=== PATIENT | female | born 1980 | race Caucasian/White ===

== ENCOUNTER 2023-04-01 09:10 | Outpatient (RCR) | payer MEDICARE, MEDICAID, SELFPAY ==
--- NOTE | 2023-04-01 10:10 | OPREHPOC ---
Outpatient Therapy Plan of Care This is a Multidisciplinary Plan of Care that may contain components documented by all disciplines (PT, OT, and ST.) PT Problem 1 PT Problem #1 Knowledge Deficit PT Goal 1 Goal 1. independent and compliant with HEP Target Visit 6 PT Problem 2 PT Problem #2 Pain PT Goal 1 Goal 1. decrease pain at worst to 4/10 or less in the cervical spine. Target Visit 12 PT Problem 3 PT Problem #3 Impaired Range of Motion PT Goal 1 Goal 1. improve cervical active flexion to 40 degrees or better 2. improve cervical active L side bend to 30 degrees or better 3. improve cervical active R rotation to 55 degrees or better Target Visit 12 PT Problem 4 PT Problem #4 Impaired Functional Mobil PT Goal 1 Goal 1. mild or less R UT and sub-occipital tightness 2. mild or less bilateral pec minor tightness 3. improve posture to reduce scapular protraction and anterior tipping bilaterally. 4. patient to report reduced frequency and intensity of headaches 3x weekly or more Target Visit 12
--- NOTE | 2023-04-01 10:10 | PTOPEVAL1 ---
Assessment and note entered by JT File, PT Evaluation Information Assessment Status Evaluation Diagnosis neck pain Onset 03/13/23 Subjective Information patient reports she is coming to therapy due to pain in the neck. she reports she has had pain for more than 10 years. she reports lately, it has gotten to the point it is causing increased headaches and migraines. she reports she has migraines every day. she reports she feels pain in the head to the top of the hear and moves outward towards the R side of her head. she reports she will feel numbness to the R side of the head and R neck. she reports she has not had any cardiac tests. she reports she does not take meds for the migraines, but is supposed to start Botox. she reports she has increased pain/symptoms at times, but cannot pin point the activities that trigger it. 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 she reports she is on disability from post covid syndrome. Reported Pain Level Pain Score 5: Self Report Assessment PT Clinical Summary mrs. rahman is a 42 yo woman who presents to skilled PT services for evaluation and treatment of neck pain. she is complicated by headaches/migraines every day, and her neck pain seems to increase her symptoms. she displays decreased cervical rom, tenderness to palpation of cervical mm's,mm tightness, resting pain, and deficits in posture/ core strength. continued skilled PT is indicated to improve her objective/functional deficits and improve her quality of life/functional activity performance. Plan of Care Interventions Electrical Stimulation,Hot Pack/Cold Pack,Manual Therapy,Mechanical Traction,Neuro Re-education, Patient/Caregiver Educati,Therapeutic Activities, Therapeutic Exercise,Other Other Interventions dry needling PT Services Indicated Yes Treatment Frequency and 3x weekly for 12 visits Duration These treatments will address the objective and functional deficits as defined above. The patient will be advanced safely and appropriately in order for the patient to progress towards his/her prior level of function. Additional exercises will be introduced and as well as a comprehensive home exercise program upon discharge, if needed, ?to ensure carryover of functional gains achieved in the clinic. This treatment plan has been reviewed and agreement upon by the patient.
--- NOTE | 2023-04-15 08:53 | PCPTNOTE ---
Patient cancelled session today. Patient reports she has a migraine.
--- NOTE | 2023-04-24 10:25 | OPREHPOC ---
Outpatient Therapy Plan of Care This is a Multidisciplinary Plan of Care that may contain components documented by all disciplines (PT, OT, and ST.) PT Problem 1 PT Problem #1 Knowledge Deficit PT Goal 1 Goal 1. independent and compliant with HEP Target Visit 6 Progress Met PT Problem 2 PT Problem #2 Pain PT Goal 1 Goal 1. decrease pain at worst to 4/10 or less in the cervical spine. Target Visit 12 Progress Not Met PT Problem 3 PT Problem #3 Impaired Range of Motion PT Goal 1 Goal 1. improve cervical active flexion to 40 degrees or better. met 2. improve cervical active L side bend to 30 degrees or better 3. improve cervical active R rotation to 55 degrees or better Target Visit 12 Progress Partially Met PT Problem 4 PT Problem #4 Impaired Functional Mobil PT Goal 1 Goal 1. mild or less R UT and sub-occipital tightness 2. mild or less bilateral pec minor tightness 3. improve posture to reduce scapular protraction and anterior tipping bilaterally. 4. patient to report reduced frequency and intensity of headaches 3x weekly or more Target Visit 12 Progress Not Met
--- NOTE | 2023-04-24 10:25 | PTOPPROGNS ---
Assessment and note entered by JT File, PT Evaluation Information Assessment Status Progress Diagnosis neck pain Onset 03/13/23 Subjective Information patient reports she has a migraine today. she reports she they typically last a few days. she reports she has noticed improved mobility of the neck with therapy, but continues to have pain in the neck and head. Assessment PT Clinical Summary mrs. rahman presents to skilled PT services for her 10th skilled therapy visit. today, she has a headache and continues to have neck and head pain. she displays improvements in cervical mobility, but still lacks achievement of all goals. she has made progressed towards rom and HEP goals. she was introduced to dry needling today to improve tissue extensibility and decrease pain. continued skilled PT is indicated to work on achievement of remaining goals and improved quality of life. Plan of Care Interventions Electrical Stimulation,Hot Pack/Cold Pack,Manual Therapy,Mechanical Traction,Neuro Re-education, Patient/Caregiver Educati,Therapeutic Activities, Therapeutic Exercise,Other Other Interventions dry needling PT Services Indicated Yes Treatment Frequency and continue skilled PT per initial POC Duration These treatments will address the objective and functional deficits as defined above. The patient will be advanced safely and appropriately in order for the patient to progress towards his/her prior level of function. Additional exercises will be introduced and as well as a comprehensive home exercise program upon discharge, if needed, ?to ensure carryover of functional gains achieved in the clinic. This treatment plan has been reviewed and agreement upon by the patient.
--- NOTE | 2023-04-30 14:42 | OPREHPOC ---
Outpatient Therapy Plan of Care This is a Multidisciplinary Plan of Care that may contain components documented by all disciplines (PT, OT, and ST.) PT Problem 1 PT Problem #1 Knowledge Deficit PT Goal 1 Goal 1. independent and compliant with HEP Target Visit 6 Progress Met PT Problem 2 PT Problem #2 Pain PT Goal 1 Goal 1. decrease pain at worst to 4/10 or less in the cervical spine. Target Visit 12 Progress Not Met PT Problem 3 PT Problem #3 Impaired Range of Motion PT Goal 1 Goal 1. improve cervical active flexion to 40 degrees or better. met 2. improve cervical active L side bend to 30 degrees or better. met 3. improve cervical active R rotation to 55 degrees or better. met Target Visit 12 Progress Met PT Problem 4 PT Problem #4 Impaired Functional Mobil PT Goal 1 Goal 1. mild or less R UT and sub-occipital tightness. met 2. mild or less bilateral pec minor tightness. not met 3. improve posture to reduce scapular protraction and anterior tipping bilaterally. not met 4. patient to report reduced frequency and intensity of headaches 3x weekly or more. not met Target Visit 12 Progress Not Met
--- NOTE | 2023-04-30 14:44 | PTOPDC ---
Assessment and note entered by JT File, PT Evaluation Information Assessment Status Discharge Diagnosis neck pain Onset 03/13/23 Subjective Information patient reports the pain in her neck is almost all taken care of. she reports the L side still has a little discomfort. she reports she continues to have migraines. patient has been compliant with exercises most days, but on back migraine days she is less active. she reports she continues to have several headaches/migraines a week. Reported Pain Level Pain Score 3,3: Self Report Assessment PT Clinical Summary mrs. rahman presents to skilled PT services for her 12th skilled PT visit. she presents with improve cervical rom and UE strength, and decreased cervical spine pain. however, she continues to have headaches and migraines routinely. she has met HEP goal and rom goals of the cervical spine. she will DC skilled PT today to independent HEP. she was instructed to follow up with PT on any return of symptoms in the neck. Plan of Care PT Services Indicated Yes
== END 2023-04-30 15:32 | disposition home or self-care (01) ==
LOC: CHSPT 09:10
DX: M54.2 Cervicalgia (principal)
CPT/HCPCS: 97012; 97014; 97110; 97140; 97161; G0283

== ENCOUNTER 2023-06-13 08:00 | Outpatient (RCR) | payer MEDICARE, MEDICAID, SELFPAY ==
--- NOTE | 2023-06-13 08:57 | OPREHPOC ---
Outpatient Therapy Plan of Care This is a Multidisciplinary Plan of Care that may contain components documented by all disciplines (PT, OT, and ST.) PT Problem 1 PT Problem #1 Knowledge Deficit PT Goal 1 Goal patient to demonstrate independence with HEP Target Visit 4 PT Problem 2 PT Problem #2 Impaired Strength PT Goal 1 Goal patient to demonstrate 5/5 strength of B LE in order to return to stair navigation at PLOF Target Visit 8 PT Problem 3 PT Problem #3 Impaired Functional Mobil PT Goal 1 Goal 1. Patient to report ability to stand to do dishes without loss of balance 2. Patient to ambulate 1600' during 6 min walk test without grabbing for objects to return to grocery shopping 3. Patient to score 24 on Tinetti Balance to decrease fall risk within the home Target Visit 8
--- NOTE | 2023-06-13 08:57 | PTOPEVAL1 ---
Assessment and note entered by Columba Castillo DPT Evaluation Information Assessment Status Evaluation Diagnosis impaired balance, neck pain Subjective Information Patient reports she had COVID in April of 2019 and has had balance issues since. She denies falls recently but reports she does lose her balance and is able to catch herself. She reports her last fall was about a month ago. She reports any time she is standing she feels unsteady. She reports difficulty with standing for prolonged periods of time to complete house hold tasks due to impaired balance. She reports that she also has difficulty with stair navigation and feels she needs a railing. patient denies neck pain at time of evaluation Reported Pain Level Pain Score 0: Self Report Plan of Care Interventions Electrical Stimulation,Gait Training,Hot Pack/Cold Pack,Manual Therapy,Mechanical Traction,Neuro Re- education,Patient/Caregiver Educati,Therapeutic Activities,Therapeutic Exercise PT Services Indicated Yes Treatment Frequency and 2x weekly for 8 visits Duration These treatments will address the objective and functional deficits as defined above. The patient will be advanced safely and appropriately in order for the patient to progress towards his/her prior level of function. Additional exercises will be introduced and as well as a comprehensive home exercise program upon discharge, if needed, ?to ensure carryover of functional gains achieved in the clinic. This treatment plan has been reviewed and agreement upon by the patient.
--- NOTE | 2023-06-27 08:49 | PCPTNOTE ---
patient cancelled due to car troubles
--- NOTE | 2023-07-11 10:40 | OPREHPOC ---
Outpatient Therapy Plan of Care This is a Multidisciplinary Plan of Care that may contain components documented by all disciplines (PT, OT, and ST.) PT Problem 1 PT Problem #1 Knowledge Deficit PT Goal 1 Goal patient to demonstrate independence with HEP Target Visit 4 Progress Met PT Problem 2 PT Problem #2 Impaired Strength PT Goal 1 Goal patient to demonstrate 5/5 strength of B LE in order to return to stair navigation at PLOF Target Visit 8 Progress Met PT Problem 3 PT Problem #3 Impaired Functional Mobil PT Goal 1 Goal 1. Patient to report ability to stand to do dishes without loss of balance -met 2. Patient to ambulate 1600' during 6 min walk test without grabbing for objects to return to grocery shopping -not met 3. Patient to score 24 on Tinetti Balance to decrease fall risk within the home -met Target Visit 8 Progress Partially Met
--- NOTE | 2023-07-11 10:40 | PTOPDC ---
Assessment and note entered by Saida Kitchen, PT Evaluation Information Assessment Status Evaluation Diagnosis impaired balance, neck pain Onset 06/05/23 Subjective Information Deja Ngo reports she is doing much better overall. She notes her balance has improved and she has not had any falls. She does still get a little wobbly from time to time but when she does she is able to catch herself. She denies pain. She does feel she could continue exercises independently. Reported Pain Level Pain Score 0: Self Report Assessment PT Clinical Summary Deja Ngo has completed 8 skilled PT visits for balance training. She is reporting improved balance and no falls since initiating PT. She does get a little off balance but notes she can correct the imbalance and it happens 1 or less times a day now. She objectively demonstrates improved LE strength to 5/5 and improved static and dynamic balance with scores on standard balance tests indicating a low fall risk now. She has met 80% of her goals and will be discharged to an independent [facility]. Plan of Care PT Services Indicated No
--- NOTE | 2023-07-11 10:40 | PTOPDC ---
Assessment and note entered by Saida Kitchen, PT Evaluation Information Assessment Status Discharge Diagnosis impaired balance, neck pain Onset 06/05/23 Subjective Information Deja Ngo reports she is doing much better overall. She notes her balance has improved and she has not had any falls. She does still get a little wobbly from time to time but when she does she is able to catch herself. She denies pain. She does feel she could continue exercises independently. Reported Pain Level Pain Score 0: Self Report Assessment PT Clinical Summary Deja Ngo has completed 8 skilled PT visits for balance training. She is reporting improved balance and no falls since initiating PT. She does get a little off balance but notes she can correct the imbalance and it happens 1 or less times a day now. She objectively demonstrates improved LE strength to 5/5 and improved static and dynamic balance with scores on standard balance tests indicating a low fall risk now. She has met 80% of her goals and will be discharged to an independent [facility]. Plan of Care PT Services Indicated No
== END 2023-07-11 13:44 | disposition home or self-care (01) ==
LOC: CHSPT 08:00
DX: M54.2 Cervicalgia (principal); R26.81 Unsteadiness on feet
CPT/HCPCS: 97110; 97112; 97161

== ENCOUNTER 2023-11-13 10:39 | Outpatient (RCR) | payer OTHER, SELFPAY ==
--- NOTE | 2023-11-05 10:20 | PCPTNOTE ---
Patient called & cancelled scheduled appointment this date due to having car problems and unable to get a ride to PT. -Saida Kitchen, PT
--- NOTE | 2023-11-13 11:48 | OPREHPOC ---
Outpatient Therapy Plan of Care This is a Multidisciplinary Plan of Care that may contain components documented by all disciplines (PT, OT, and ST.) PT Problem 1 PT Problem #1 Knowledge Deficit PT Goal 1 Goal / Goal Update 1. independent and compliant with HEP PT Problem 2 PT Problem #2 Pain PT Goal 1 Goal / Goal Update 1. pain in the R shoulder to be no more than 1/10 in the last week. Target Visit 12 PT Problem 3 PT Problem #3 Impaired Range of Motion PT Goal 1 Goal / Goal Update 1. 145 degrees or better active R shoulder flexion 2. 120 degrees or better active R shoulder abduction 3. 75 degrees or better active R shoulder ER Target Visit 12 PT Problem 4 PT Problem #4 Impaired Strength PT Goal 1 Goal / Goal Update 1. 4+/5 or better R shoulder strength overall 2. 5/5 R elbow strength Target Visit 12 PT Problem 5 PT Problem #5 Impaired Functional Mobil PT Goal 1 Goal / Goal Update 1. quick dash to display 10% or less functional deficits 2. patient to lift 5lbs overhead to tall shelf x10 bouts without pain 3. patient to carry 17.5lb box for 400ft safely 4. patient to reach behind back and head with ease and no increased pain 5. patient to return to prior level work duties without restrictions or pain Target Visit 12
--- NOTE | 2023-11-13 11:48 | PTOPEVAL1 ---
Assessment and note entered by JT File, PT Evaluation Information Assessment Status Evaluation ICD-10 Condition Codes (PT) M25.511 Onset 10/18/23 Subjective Information patient reports she fell on 10/18/23. she reports she fell on the R side and hurt the shoulder. she reports she did have xrays which were negative. she reports she has increased pain when raising the arm up from her side. she reports straight out to the side is worse than forward. she has had RTC surgery on the R shoulder last year. she reports she is now limited in lifting and washing her body. patient reports this fall did happen at work. Reported Pain Level Pain Score 0: Self Report Assessment PT Clinical Summary mrs. rahman is a 43 yo woman who presents to skilled PT for evaluation and treatment of R shoulder pain following a fall about 3 weeks ago. she displays decreased R shoulder rom, R shoulder weakness, pain with activity/movement, and limited functional mobility. she likely has a RTC/biceps tendonitis from her fall. she would benefit from continued skilled PT to address her objective/ functional deficits and progress towards a return to her prior level functional activity performance and quality of life. Plan of Care Interventions Electrical Stimulation,Hot Pack/Cold Pack,Manual Therapy,Neuro Re-education,Patient/Caregiver Educati,Therapeutic Activities,Therapeutic Exercise PT Services Indicated Yes Treatment Frequency and 3x weekly for 12 visits Duration These treatments will address the objective and functional deficits as defined above. The patient will be advanced safely and appropriately in order for the patient to progress towards his/her prior level of function. Additional exercises will be introduced and as well as a comprehensive home exercise program upon discharge, if needed, ?to ensure carryover of functional gains achieved in the clinic. This treatment plan has been reviewed and agreement upon by the patient.
--- NOTE | 2023-12-04 15:06 | PTOPPROG ---
Assessment and note entered by Sk[facility] Evaluation Information Assessment Status Progress ICD-10 Condition Codes (PT) M25.511 Onset 10/18/23 Subjective Information Pt. reports that progress initially with therapy was good. She states that she has noticed that her progress has slowed down recently. She reports that she still avoids sleeping on the right side due to pain. She reports she is able to work, as a lot of her work avoids the overhead position and does not require heavy lifting. Assessment PT Clinical Summary Pt. has attended a total of 10 treatment sessions. She demonstrates improvements in strength and ROM, as well as reported pain intensity. Despite these improvements continue to note weakness at the right shoulder, especially with overhead movements. Also note some crepitus during passive movement of the right shoulder on this date. continued skilled PT is indicated per POC continuing to improve strength and mobility. Plan of Care Interventions Electrical Stimulation,Hot Pack/Cold Pack,Manual Therapy,Neuro Re-education,Patient/Caregiver Educati,Therapeutic Activities,Therapeutic Exercise PT Services Indicated Yes Treatment Frequency and Continue with 2 visits remaining on POC to Duration continue focus on improving overhead strength and reducing pain. These treatments will address the objective and functional deficits as defined above. The patient will be advanced safely and appropriately in order for the patient to progress towards his/her prior level of function. Additional exercises will be introduced and as well as a comprehensive home exercise program upon discharge, if needed, ?to ensure carryover of functional gains achieved in the clinic. This treatment plan has been reviewed and agreement upon by the patient.
--- NOTE | 2023-12-09 11:47 | PTOPDC ---
Assessment and note entered by Skinny Dotson Evaluation Information Assessment Status Discharge ICD-10 Condition Codes (PT) M25.511 Onset 10/18/23 Subjective Information Pt. reports that she notices improved mobility since beginning therapy. She states that her pain intensity is improved since initial evaluation, however has become more stagnant as of recently. She states that she still has pain on the side of the shoulder. She states that she continues to work, however is avoiding any lifting. Given that she has history of rotator cuff injury in the past she states that she would like to revisit with her doctor to discuss continued pain. Reported Pain Level Pain Score 3: Self Report Assessment PT Clinical Summary Pt. has attended a total of 12 treatment sessions in the past 4 weeks. She has demonstrated improvements in strength and mobility. Despite these improvements she continues to provide reports of consistent pain. At this time recommend pt. follow up with her doctor regarding remaining pain to determine if MRI or other testing is necessary. Plan of Care PT Services Indicated No
== END 2023-12-09 16:01 | disposition home or self-care (01) ==
LOC: CHSPT 10:39
PROVIDERS: Visit Provider Internal Medicine
DX: M25.511 Pain in right shoulder (principal)
CPT/HCPCS: 97014; 97110; 97150; 97161; G0283

== ENCOUNTER 2023-12-26 07:32 | Outpatient (CLI) | payer OTHER, SELFPAY ==
--- NOTE | ~2023-12-26 | MR_ITS ---
MRI of the right shoulder Technique: Axial proton-density fat-sat images, coronal proton density fat-sat and T2 fat-sat images, and sagittal T1-weighted and T2 fat-sat images were acquired. Clinical History: Pain Findings: There is minimal AC joint degenerative change. Coracoclavicular, coracoacromial, and coraco humeral ligaments appear intact. There are suture anchors at the humeral head. Supraspinatus and infraspinatus tendons appear intact, without definite full-thickness or high-grade partial tear. Subscapularis tendon is intact. Probable rupture of the intra-articular biceps tendon versus prior tenodesis. No definite labral tear seen. Inferior glenohumeral ligament is intact. There is minimal glenohumeral joint effusion. No significan t degenerative change. There is mild fluid distention of the subacromial/subdeltoid bursa. No muscle atrophy or edema. Impression: Probable prior rotator cuff repair surgery. Rotator cuff tendons appear intact. Rupture of the intra-articular long head biceps tendon with proximal retraction, versus less likely p rior biceps tenodesis. Correlate with surgical history. Mild subacromial/subdeltoid bursitis. Reviewed, dictated and finalized at [facility]. [employer] Impression: Probable prior rotator cuff repair surgery. Rotator cuff tendons appear intact. Rupture of the intra-articular long head biceps tendon with proximal retraction , versus less likely prior biceps tenodesis. Correlate with surgical history. Mild subacromial/subdeltoid bursitis.
== END 2023-12-26 07:33 | disposition home or self-care (01) ==
LOC: CHSIMG 07:35
PROVIDERS: PCP Internal Medicine
DX: M25.511 Pain in right shoulder (principal); S46.111A Strain of muscle, fascia and tendon of long head of biceps, right arm, initial encounter; M75.51 Bursitis of right shoulder
CPT/HCPCS: 73221

== ENCOUNTER 2024-06-03 10:27 | Outpatient (CLI) | payer MEDICARE, SELFPAY ==
--- NOTE | ~2024-06-03 | MM_ITS ---
EXAMINATION: MM screening meagan BI w jennifer HISTORY: Screening TECHNIQUE: Craniocaudal and mediolateral oblique 3-D tomosynthesis images were obtained and synthetic 2-D images were generated. CAD analysis was submitted and interpreted. COMPARISON: No prior mammogram is available for comparison at this institution. BREAST PARENCHYMAL COMPOSITION: Not dense: There are scattered areas of fibroglandular density. FINDINGS: There is no evidence of suspicious mass, calcification, or architectural distortion to sugg est malignancy in either breast. There has been no suspicious interval change. IMPRESSION: 1. No mammographic evidence of malignancy. 2. Recommend routine screening mammography in one year. BI-RADS Category 1: Negative Reviewed, dictated and finalized at location B.
--- OUTSIDE RECORDS SUMMARY | 2024-06-03 11:38 | XMS_ITS | Data Portability ---
Author Organization [place] [facility] Address [address] [place] [address] Assessment Encounter Date Assessment Date Assessment LastModified by Organization Details LastModified Time 06/16/2019 06/16/[address] via telemedicine. Patient was in their (add location) and I was able to video chat with Her. She agreed to do this via telehealth today. Spent total of in 30 minutes in direct telephone contact with patient in discussion and review of multiple medical issues detailed below. Not available 06/16/2019 23:56:53 Plan of Treatment Reminders Order Date Submit Date Provider Last Modified By Organization Details Last Modified Time Details Appointments None recorded. Lab None recorded. Referral orthopedic referral 2019 020 MIRIAM Inman MD, [address], [place], [address], 0 05:01:38 orthopedic referral 2019 020 [place], [address], [address], 0 05:01:38 Procedures None recorded. Surgeries None recorded. Imaging None recorded. Medication Orders tramadol 50 mg tablet 2019 020 [facility][id number], [address], [place], [place], [id number], 0 00:59:06 cyclobenza ren 5 mg tablet 2019 020 [facility] #[id number], [address] [place], [place], [id number], 0 00:59:06 tramadol 50 mg tablet 2018 019 INTERFACE [facility] #[id number], [address] [place], [place], [id number], 9 13:19:12 Patient TargetsNo targets recorded. Patient Instructions Encounter Date Encounter Id Patient Instructions Last Modified By Organization Details Last Modified Time 01/05/2019 [id number] return to clinic p.r.n. Not available 01/05/2019 20:51:47 06/16/2019 [id number] Continue other meds as usual. Follow-up after consults Not available 06/17/2019 00:06:44 Reason for Referral Orthopedic Referral for Front Facer ivette ankle pain Referring Physician: Cristian Fung [facility] Medicine, Encounter Date: 06/16/2019 Orthopedic Referral for Lumb osacral radiculopathy Referring Physician: Cristian Fung [facility] Medicine, Encounter Date: 06/16/2019 Problems Name Problem SNOMED Code Status Onset Date Resolution Date Notes Provider Name and Address Organization Details Recorded Time Migraine 00484871 Active 2018 CARMEL Hackett [facility] 9 11:23:39 Mixed anxiety and depressiv e disorder 005408855 Active 2018 CARMEL Hackett [facility] 9 11:24:14 Constipat ion 65706124 Active 2018 CARMEL Hackett [facility] 9 21:27:35 Hyperlipi demia 51709341 Completed 201609/02/2018 CARMEL Hackett [facility] 9 21:33:46 Anxiety 28044629 Active 2016 CARMEL Kwong [facility] 8 10:25:09 Portal vein thrombosi s 95136670 Active 2016 CARMEL [facility] 7 19:31:53 Anticoagu lant therapy Active 2016 Zoraidanereida Ortizsh cliff, [facility] 8 10:25:09 Anemia 102782386 Completed 201611/05/2016 Cristian coronado, [facility] 7 18:08:32 Thrombosi s of mesenteri c vein 17612245 Completed 201609/02/2018 Cristian coronado, [facility] 9 11:22:35 Hypothyro idism 43999761 Active 2016 Zoraida Ortizsh null, [facility] 8 10:25:09 Alkaline phosphata se above reference range 464906894 Active 2016 Zoraida Ortizsh cliff [facility] 8 10:25:09 Obstructi ve sleep apnea syndrome 57671320 Completed 201709/02/2018 Cristian coronado [facility] 9 11:22:55 Chronic low back pain 222361636 Active 2019 Cristian Fung null, [facility] 0 01:04:22 Sprain of ankle 48437071 Completed 09/02/2018 Cristian coronado [facility] 9 11:22:14 History of surgery 599625921 Completed 09/02/2018 Cristian coronado [facility] 9 11:21:59 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 Zoraida coronado [facility] 8 10:25:09 Pancreati c lipase above reference range 701846601 Completed 09/02/2018 Cristian Fung null, [facility] 9 11:23:13 Anemia 793094468 Active Zoraida Ortizsh cliff [facility] 8 10:25:09 Dysfuncti onal uterine bleeding Completed 09/02/2018 Cristian coronado [facility] 9 11:21:41 Vaginal bleeding 432061767 Completed 09/02/2018 Cristian coronado [facility] 9 11:22:09 Chronic vertigo 405922685472 05 Active 2018 Cristian coronado [facility] 9 10:56:08 Problem Notes None recorded. Procedures Surgical History Date Name Laterality Status Provider Name and Address Organization Details Recorded Time 06/16/19 20 Telemedicine Equipment completed Cristian Fung [facility] 06/16/2019 23:36:55 08/19/19 15 Date of Last [facility] 13:08:54 02/18/19 14 Neurosurgery completed Shira [facility] 03/15/2016 13:09:21 12/03/19 13 Colonoscopy completed [facility] 09/09/2018 16:28:12 02/18/19 13 Date of Last Colonoscopy completed Gerri Harris [facility] 07/23/2016 17:05:49 09/02/19 12 Most Recent Bone Density completed [facility] 09/09/2018 16:28:12 02/18/18 98 [facility] 13:09:21 Orthopedic Surgery completed [facility] 09/09/2018 16:29:53 Colposcopy completed [facility] 09/09/2018 16:29:53 Colonoscopy completed [facility] 09/09/2018 16:29:53 Hysterectomy Total completed [facility] 09/09/2018 16:29:53 Imaging Results None recorded. Procedure Notes None recorded. Medical Equipment None Reported. Allergies No known drug allergies Medications Name Sig Start Date Stop Date Status Note LastModified by Organization Details LastModified Time verapamil ER (SR) 120 mg tablet,exte nded release active Not Available Not Available Not Available Henderson Thyroid 60 mg tablet 03/15 completed Not Available Not Available Not Available medroxyprog esterone 10 mg tablet 07/31 completed Not Available Not Available Not Available venlafaxine ER 37.5 mg capsule,ext ended release 24 hr 03/15 completed Not Available Not Available Not Available venlafaxine ER 75 mg capsule,ext ended release 24 hr Take 1 capsule every day by oral route for 90 days. active Not Available Not Available No t Available venlafaxine 75 mg tablet 07/09 completed Not Available Not Available Not Available Carafate 100 mg/mL oral suspension 07/23 completed Not Available Not Available Not Available citalopram 40 mg tablet 03/15 completed Not Available Not Available Not Available thyroid 30 mg tablet 08/28 completed Not Available Not Available Not Available tizanidine 4 mg tablet 05/14 completed Not Available Not Available Not Available fluconazole 150 mg tablet 07/31 completed Not Available Not Available Not Available citalopram 10 mg tablet 03/15 completed Not Available Not Available Not Available sumatriptan 100 mg tablet Take 1 tablet as needed by oral route. active Not Available Not Available No t Available hydrocodone 5 mg-acetamin ophen 325 mg tablet active Not Available Not Available No t Available prednisone 20 mg tablet 01/05 completed Not Available Not Available Not Available clonazepam 0.5 mg tablet Take 1 tablet every day by oral route as needed. active Not Available Not Available No t Available venlafaxine ER 150 mg capsule,ext ended release 24 hr Take 1 capsule every day by oral route. active Not Available Not Available No t Available warfarin 2.5 mg tablet 08/14 completed Not Available Not Available Not Available tramadol 50 mg tablet Take 1 tablet every 6 hours by oral route. 2019 active Not Available Not Available Not Avai lable acetaminoph en 500 mg tablet 05/14 completed Not Available Not Available Not Available lamotrigine 25 mg tablet active Not Available Not Available Not Available warfarin 3 mg tablet Take 1 tablet every day by oral route. 03/12 completed Not Available Not Available Not Available levothyroxi ne 75 mcg tablet Take 1 tablet every day by oral route. 06/17 completed Not Available Not Available Not Available oxycodone-a cetaminophe n 5 mg-325 mg tablet 05/14 completed Not Available Not Available Not Available propranolol 10 mg tablet 08/14 completed Not Available Not Available Not Available propranolol 40 mg tablet Take 1 tablet twice a day by oral route. active Not Available Not Available No t Available ascorbic acid (vitamin C) 500 mg tablet 08/28 completed Not Available Not Available Not Available meclizine 25 mg tablet 01/05 completed Not Available Not Available Not Available levothyroxi ne 50 mcg tablet Take 1 tablet every day by oral route. active Not Available Not Available No t Available cephalexin 500 mg capsule active Not Available Not Available Not Available pantoprazol e 40 mg tablet,mary yed release 08/28 completed Not Available Not Available Not Available warfarin 2 mg tablet Take 1 tab on Tues, Thurs, Sat, and Sun 08/14 completed Not Available Not Available Not Available promethazin e 25 mg tablet 08/28 completed Not Available Not Available Not Available progesteron e micronized 200 mg capsule Take 1 capsule every day by oral route for 10 days. 12/17 completed Not Available Not Available Not Available hydrochloro thiazide 12.5 mg capsule 01/05 completed Not Available Not Available Not Available docusate sodium 100 mg capsule active Not Available Not Available N ot Available Henderson Thyroid 30 mg tablet Take 1 tablet every day by oral route. 03/12 completed Not Available Not Available Not Available ergocalcife rol (vitamin D2) 1,250 mcg (50,000 unit) capsule 08/28 completed Not Available Not Available Not Available lorazepam 1 mg tablet active Not Available Not Available No t Available warfarin 1 mg tablet 08/28 completed Not Available Not Available Not Available methylpredn isolone 4 mg tablets in a dose pack 05/14 completed Not Available Not Available Not Available SSD 1 % topical cream 08/14 completed Not Available Not Available Not Available propranolol 20 mg tablet 01/05 completed Not Available Not Available Not Available lamotrigine 100 mg tablet active Not Available Not Available Not Available amoxicillin 875 mg-potassiu m clavulanate 125 mg tablet active Not Available Not Available Not Available verapamil ER 120 mg 24 hr capsule,ext ended release Take 1 capsule every day by oral route. active Not Available Not Available No t Available oxycodone 5 mg tablet 05/14 completed Not Available Not Available Not Available neomycin-po lymyxin-hyd rocort 3.5 mg-10,000 unit/mL-1 % ear drops,susp active Not Available Not Available N ot Available ferrous sulfate ER 325 mg (65 mg iron) capsule,ext ended release 08/28 completed Not Available Not Available Not Available cyclobenzap rine 5 mg tablet Take 1-2 HS p.r.n. 2019 active Not Available Not Available Not Avai lable biotin 1 mg tablet 08/28 completed Not Available Not Available Not Available calcium 500 mg (as carbonate)- vitamin D3 5 mcg (200 unit) tablet 07/11 completed Not Available Not Available Not Available Lyrica 75 mg capsule Take 1 capsule twice a day by oral route. 01/05 completed Not Available Not Available Not Available chlorhexidi ne gluconate 0.12 % mouthwash active Not Available Not Available No t Available warfarin DIRECTED 08/14 completed Not Available Not Available Not Available aripiprazol e 2 mg tablet Take 2 tablets every day by oral route. active Not Available Not Available No t Available Xarelto 10 mg tablet active Not Available Not Available No t Available oxycodone 5 mg tablet,oral ONLY (not feeding tubes) 07/09 completed Not Available Not Available Not Available Eliquis 5 mg tablet 07/31 completed Not Available Not Available Not Available Martha 14 mcg/24 hr (up to 3 years) 13.5 mg intrauterin e device 05/14 completed Not Available Not Available Not Available Vitals Date Recorded Body height Body mass index (BMI) Body weight Body temperature Oxygen saturation Oxygen saturation in Arterial blood by Pulse oximetry Heart rate Systolic blood pressure Diastolic blood pressure Provider Name and Address Organization Details Last Updated DateTime 9 162.56 cm 33.5 kg/m2 64370.5 1 g 97.6 [degF] 97 % 97 % 75 /min 108 mm[Hg] 72 mm[Hg] Savannah Waters [place] [facility] [employer] [facility] 9 12:37:06 Social History Question Answer Notes LastModified by Organizat ion Details LastModified Time Tobacco Smoking Status Never Smoker Shira coronado [place] [facility] 03/15/2016 13:09:11 What Is Your Level Of Alcohol Consumption? None Information not available 03/15/2016 What Is Your Level Of Caffeine Consumption? Occasional Information not available 09/09/2018 How Much Tobacco Do You Chew? None Information not available 03/15/2016 What Type Of Diet Are You Following? REGULAR Information n ot available 03/15/2016 What Is Your Occupation? Other [email or web address] Information not available 03/15/2016 Single Or Multi-level Home/work? Multi Level Home Information not available 09/09/2018 Live Alone Or With Others? With Others Information not available 09/09/2018 Patient Risk Stratification Level Low [id number] Information not available 05/14/2018 Marital Status Informatio n not available 09/09/2018 What Was The Date Of Your Most Recent Tobacco Screening? 09/02/2018 Information not available 09/10/2018 How Much Tobacco Do You Smoke? No Information not available 03/15/2016 Sex: Unknown Functional Status Question Answer Note LastModified by Organization D etails LastModified Time What is your exercise level? None Information not available 03/15/2016 Mental Status None recorded. Family History Relationship Description Onset Age of this Age Resolved Age Notes LastModified by Organization Details LastModified Time Father Blood coagulation disorder [email or web address] Not available 2016 12:54:54 Sister Mental disorder [email or web address] Not available 2016 12:55:15 Sister Migraine [email or web address] Not available 0 03/15/2016 12:55:15 Sister Seizure disorder [email or web address] Not available 2016 12:55:15 Maternal Grandmother Malignant neoplastic disease [email or web address] Not available 2016 12:55:33 Paternal Grandfather Heart disease [email or web address] Not available 2016 12:55:51 Paternal Grandfather Sudden cardiac [email or web address] Not available 2016 12:55:51 Medical History Condition Response Other N Allergic/Immunologic Disorders N Endocrine (diabetes, thyroid, etc.) Y Musculoskeletal N Hospitalizations N Psychological Y Significant Injuries N Skin N Eye Problems N Pulmonary N Colonscopy Y Cancer (list type) N ENMT (ear, nose, mouth, throat) issues N Neurological (Seizures, etc) Y Gastrointestinal Y Hematologic/Lymphatic Y Cardiovascular (AZ, murmur, etc) N Gynecological History Statement/Question Response Abnormal Pap Y Date of Last Mammogram Date of LMP 09/11/2017 Post Menopausal Bleeding N STIs/STDs N HPV Vaccine N Duration of Flow (days) 10 Age at Menarche 11 Current Control Method Hysterectom y Number of Children 0 Date of Last Colonoscopy 02/19/2012 Most Recent Bone Density 09/02/2011 Sexually Active? Y Date of Last Pap Smear 08/18/2014 Sexual Problems? N Colonoscopy 12/02/2012 Obstetrics History GPAL:G 0 P 0 0 0 0 Immunizations Vaccine Type Date Status Note Provider Nam raul and Address Organization Details Recorded Time Influenza, split virus, quadrivalent, PF 12/14/2017 completed CARMEL Gibson [facility] 09/09/2018 16:30:03 Tdap 10/24/2016 completed Not Available [facility] 03/07/2019 02:49:04 Past Encounters Encounter ID Performer Location Encounter Start Date Encounter Closed Date Diagnosis/Indication Diagnosis SNOMED-CT Code Diagnosis ICD10 Code Diagnosis Note [id number] Dorcas [address] [address] 03/15/2016 12:45:57 03/15/2016 15:04:57 Obstructive sleep apnea syndrome 18489054 G47.33 Z68.35 An order was written for cpap at 9 cm of h2o with humidifica tion. Elevate the head of your bed. Walk qd. Decrease carbs and sweets. Do not drink pop, juice or Starbucks. Morbid obesity 782191817 E66.01 Start a food diary. F/u with [facility] [employer] next week. A letter was written today for her insurance company. [id number] [address] 04/19/2016 12:16:25 04/19/2016 18:06:18 Morbid obesity 801394733 E66.01 Continue a food diary. Continue to work with [facility] [employer]. Hypothyroidism 66968018 E03.9 Continue to take Henderson qd. Check thyroid labs at next visit. Obstructiv e sleep apnea syndrome 07958804 G47.33 Z68.35 Continue to wear cpap qhs. Elevate the head of your bed. Decrease carbs and sweets. Do not drink pop, juice or Starbucks. Continue daily exercise. She is up to 20 minutes a day now. Continue to increase exercise. [id number] Dorcas [address] [address] 05/31/2016 11:14:12 06/01/2016 13:40:44 Pre-surgery evaluation 021483584 Z01.818 She will get her pre op labs and CXR at [facility]. Morbid obesity 783579044 E66.01 Continue a food diary. Continue to work with [facility] [employer]. Try to bike qd. Obstructiv e sleep apnea syndrome 67742658 G47.33 Z68.35 Continue to wear cpap qhs. Elevate the head of your bed. Decrease carbs and sweets. Do not drink pop, juice or Starbucks. Continue daily exercise. She is up to 30 minutes a day 5 days a week. Continue to increase exercise. [id number] Dorcas [address] [address] 07/23/2016 16:50:33 07/24/2016 16:15:24 Menometrorrhagia 284614274 N92.1 We are also getting a quantatati ve Bhcg. Records are pending from [facility] and Dr Barrett. She will start FeSo4 325 mg bid with orange juice. She will go back to the ER now. Tachycardia 1671864 R00. 0 This most likely is due to the blood loss. Portal vei n thrombosis 83289315 I81 I filled her Eliquis for another 5 months. She will f/u with Dr Brady. We are waiting for records from Dr Barrett. [id number] [address] [address] 07/31/2016 12:51:05 08/01/2016 18:38:43 Anticoagulant therapy 821064229 Z79.01 Start Coumadin 1 mg QD Menometrorrhagia 2820509 08 N92.1 Resolved Abnormal u terine bleeding 9777776018 9100 N93.9 Resolved Iron defic iency anemia 07609323 D50.9 Continue Ferrous sulfate 325 mg QDFollow up with hematologi [id number] [facility] [address] [place] [address] 08/06/2016 10:03:40 08/06/2016 20:29:26 Anticoagulant therapy 242416201 Z79.01 Increase Coumadin to 2 mg on Saturday and ; continue 1 mg QD the other days of the week Portal vei n thrombosis 36029350 I81 Anemia 687560994 D64.9 Secondary to uterine hemorrhage 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.[id number] [address] 08/10/2016 09:57:06 08/10/2016 12:50:34 Anticoagulant therapy 366748303 Z79.01 Increase Coumadin to 1 mg on Saturday, Saturday, and Saturday; 2 mg QD the other days of the week Portal vei n thrombosis 94627046 I81 Thrombosis of mesenteric vein 78334239 K55.059 Anemia 356397108 D64.9 Secondary to uterine hemorrhage [id number] [address] [address] 08/15/2016 10:00:21 08/16/2016 13:14:45 Anticoagulant therapy 217503951 Z79.01 Decrease Coumadin to 2mg QD Portal vei n thrombosis 32634769 I81 Thrombosis of mesenteric vein 84250844 K55.[id number] [address] 08/20/2016 12:15:05 08/20/2016 12:52:16 Anticoagulant therapy 920957545 Z79.01 Increase Coumadin to 3 mg QD from 2 mg QD Portal vei n thrombosis 87854597 I81 Thrombosis of mesenteric vein 99158447 K55.[id number] [address] 08/27/2016 09:57:00 08/27/2016 10:48:21 Anticoagulant therapy 551565044 Z79.01 Continue Coumadin 3 mg QD Portal vei n thrombosis 05161946 I81 Thrombosis of mesenteric vein 28483793 K55.059 Anemia 459139078 D64.9 Secondary to uterine hemorrhage [id number] [address] [address] 09/03/2016 09:56:20 09/03/2016 10:42:05 Anticoagulant therapy 282376003 Z79.01 Renew (not start) Coumadin 3 mg QD Portal vei n thrombosis 25732501 I81 Thrombosis of mesenteric vein 16320613 K55.[id number] [address] 09/10/2016 09:58:22 09/10/2016 12:09:43 Blood coagulation disorder 28557356 D68.9 Anticoagulant therapy 18 5685369 Z79.01 Renew (not start) Coumadin 3 mg QD Portal vei n thrombosis 68073915 I81 Thrombosis of mesenteric vein 37863230 K55.059 [id number] Margi Justino [address] [address] 09/17/2016 09:57:10 09/17/2016 12:56:42 Anticoagulant therapy 099159081 Z79.01 Hold Coumadin x 1 day, then restart at 3mg PO QD. Medication monitoring 39 0118489 Z51.81 Long-term drug therapy 066521937 Z79.[id number] [address] 10/01/2016 17:58:12 10/02/2016 13:24:20 Portal vein thrombosis 63335293 I81 Anticoagulant therapy 18 9425101 Z79.01 Continue Coumadin 3 mg QD [id number] [address] [address] 10/24/2016 17:25:00 10/29/2016 16:25:09 Hypothyroidism 85957517 E03.9 Adult heal th examination 018852305 Z00.00 Anemia 954449706 D64.9 Secondary to uterine hemorrhage Hyperlipidemia 68485261 E78.5 Active or passive immunization 346183152 Z23 Anticoagulant therapy 18 5171892 Z79.01 Continue Coumadin 3 mg QD Portal vei n thrombosis 54962360 I81 Thrombosis of mesenteric vein 27797092 K55.059 [facility] [place] [id number] F41.[id number] [address] 11/05/2016 17:26:50 11/05/2016 18:16:33 Anticoagulant therapy 796499308 Z79.01 Continue Coumadin 3 mg QD Alkaline p hosphatase above reference range 408278632 R74.[id number] [address] 12/05/2016 18:57:25 12/07/2016 15:55:21 Anticoagulant therapy 683795033 Z79.01 The hold Coumadin for 2 days. Then resume at lower dose of 3 mg Saturday, Saturday, Saturday, the and 2.5 mg the other days of the week Thrombosis of mesenteric vein 87750799 K55.059 Portal vei n thrombosis 39180646 I81 [id number] [address] 12/17/2016 19:02:09 12/18/2016 21:18:16 Anticoagulant therapy 069545455 Z79.01 Decrease Coumadin dose to 3 milligrams on Saturday and 2.5 milligrams the other days of the week [id number] [address] [address] 01/14/2017 19:07:00 01/21/2017 11:21:32 Anticoagulant therapy 052605504 Z79.01 Hold Coumadin for 1 day tomorrowTh en decrease Coumadin dose to 2mg on Sat and Thurs and 2.5 milligrams the other days of the week [id number] [address] [address] 01/28/2017 19:02:59 01/29/2017 11:36:20 Portal vein thrombosis 80349507 I81 Thrombosis of mesenteric vein 41089433 K55.059 Anticoagulant therapy 18 0852320 Z79.01 decrease Coumadin dose to 2mg on Saturday, Saturday, and Saturday and 2.5 milligrams the other days of the week [id number] [address] [address] 02/19/2017 18:54:16 02/19/2017 19:39:14 Anticoagulant therapy 154844092 Z79. Continue present Coumadin dose Portal vei n thrombosis 20288538 I81 Thrombosis of mesenteric vein 31574289 K55.[id number] [address] 03/12/2017 18:27:48 03/13/2017 17:46:23 Anticoagulant therapy 346900934 Z79.01 Change coumadin dose to 2.5 mg M, W, F and 2 mg other days of the week Hypothyroidism 52819748 E03.[id number] [address] 04/01/2017 18:29:24 04/02/2017 20:27:25 Anticoagulant therapy 369477925 Z79.01 Change coumadin dose to 2.5 mg Sun and Thur; 2 mg other days of the week Hypothyroidism 80752617 E03.[id number] [address] 04/23/2017 18:25:38 04/24/2017 14:51:04 Anticoagulant therapy 043756816 Z79.01 Continue coumadin dose of 2.5 mg Sun and Thur; 2 mg other days of the week Hypothyroidism 92095349 E03.9 Decreased dose of levothyrox ine to 50 mcg q.d. Portal vei n thrombosis 85076807 I81 Thrombosis of mesenteric vein 57261865 K55.[id number] [address] 05/20/2017 18:21:52 05/21/2017 10:44:53 Anticoagulant therapy 040301044 Z79.01 Continue coumadin dose of 2.5 mg Sun and Thur; 2 mg other days of the week Hypothyroidism [id number] E03.9 Continue levothyrox ine 50 mcg q.d. Obstructiv e sleep apnea syndrome 59042996 G47.33 Will continue CPAP for now [id number] [address] [address] 1 06/04/2017 11:45:11 06/04/2017 13:05:[id number] [address] 1 06/17/2017 18:25:48 06/17/2017 22:11:37 Anticoagulant therapy [id number] Z79.01 increase coumadin dose to 2.5 mg M, W, F; 2 mg other days of the week Hypothyroidism 29387984 E03.9 Continue levothyrox ine 50 mcg q.d. [id number] [address] [address] 1 07/17/2017 18:27:47 07/18/2017 10:45:07 Anticoagulant therapy 034639072 Z79.01 increase coumadin to 2mg M,W,F and 2.5 other days of the week Hypothyroidism 83861140 E03.9 Continue levothyrox ine 50 mcg q.d. [id number] [address] [address] 1 08/14/2017 18:47:13 08/19/2017 11:44:33 Pre-surgery evaluation 221997239 Z01.818 Hypothyroidism 34713724 E03.9 Continue levothyrox ine 50 mcg q.d. Obstructiv e sleep apnea syndrome 24613490 G47.33 Abnormal v aginal bleeding 767200889 N93.9 Anticoagulant therapy 18 7400260 Z79.01 increase coumadin to 2mg M,W,F and 2.5 other days of the week Portal vei n thrombosis 82791021 I81 History of Thrombosis of mesenteric vein 19083769 K55.059 History of Anxiety 31353388 F41.9 [id number] [address] [place] [address] 11/26/2017 17:16:08 11/27/2017 09:44:00 Administrative reason for encounter 074657004 Z02.[id number] [address] 1 01/03/2018 16:03:03 01/03/2018 17:12:23 Administrative reason for encounter 087951588 Z02.[id number] [address] 1 05/08/2018 13:08:08 05/08/2018 15:36:39 Administrative reason for encounter 347432647 Z02.[id number] [address] 1 05/14/2018 10:04:05 05/14/2018 16:18:36 Chronic vertigo 3838342133 9105 R[id number] [address] 1 09/02/2018 10:22:47 09/02/2018 13:17:40 Adult health examination 115483171 Z00.00 Hypothyroidism 99339985 E03.9 Continue levothyrox ine 50 mcg q.d. Mixed anxi ety and depressive disorder 196052969 F41.8 Migraine 79663527 G43.90 9 Anticoagulant therapy 18 4991462 Z79.01 increase coumadin to 2mg M,W,F and 2.5 other days of the week Alkaline p hosphatase above reference range 314537716 R74.[id number] [address] 1 12/30/2018 12:28:34 01/01/2019 15:16:26 Administrative reason for encounter 355370443 Z02.[id number] [address] 1 01/05/2019 12:28:55 01/05/2019 18:38:07 Pain of left ankle joint 3754538534 8433436 M25.572 Tylenol prn Sprain of left ankle 110 2326052 8099000 S93.402A Elevate the foot when sittingApp ly ice p.r.n. [id number] [facility] [address] [address] 1 01/14/2019 12:31:36 01/22/2019 13:56:45 Administrative reason for encounter 903585037 Z02.9 [id number] [facility] [address] [address] 1 01/29/2019 15:28:26 02/05/2019 12:05:35 Administrative reason for encounter 447681694 Z02.9 [id number] [facility] 7335 [place] [address] 06/16/2019 17:10:00 06/19/2019 04:23:30 Chronic ankle pain 9859775042 9109 M25.579 Lumbosacra l radiculopathy 0706354 M54.17 Same as above Health Concerns Section Related Observation LastModified by Organization Detai ls LastModified Time None Recorded Concern Status LastModified by Organization Details LastModified Time None Recorded Advance Directives Directive None Recorded Payers Encounter Date Sequence Insurance Name Policy Number Policy Mas Covered Member ID Mas Member ID Guarantor Name 12/30/2018 1 [facility] [id number] Deja Huber [id number] [facility] 01/05/2019 1 [facility] [id number] [id number]/2019 1 [facility] [id number] Deja Huber [id number] Deja Huber 01/29/2019 1 [facility] [id number] Deja Huber [id number] [facility] 06/16/2019 1 [facility] [id number] Deja Ngo [id number] Deja Huber Notes Date Note Type Note Provider Name and Address Organization Details Recorded Time 9 text/html Emergency Department Follow-Up RecordReported bypatient.Discharge Informationname of ED Urgent Care ([facility]); emergency department discharge date: (Please enter in format 'MM/DD/YYYY') (12/28/2018); date of follow-up phone call: (Please enter in format 'MM/DD/YYYY') (12/30/2018)Transition Care ManagementReported bypatient.Timing:date of discharge: (12/28/2018); date interactive contact was made: (12/30/2018) Facility:discharged to: (Home); Facility Urgent Care ([facility]) Follow Upscheduled no [facility] 12/30/2018 16:21:48 9 text/html 9 DAYS AGO SHE SLIPPED AND FELL ON SOME ICE INJURING HER LEFT ANKLE. SHE WENT TO AN URGENT CARE THE NEXT DAY WHERE AN X-RAY OF THE FOOT AND ANKLE WAS NEGATIVE. SHE WAS GIVEN TRAMADOL TO TAKE P.R.N. SHE CAN'T TAKE NSAIDS BECAUSE SHE IS ON XARELTO. THERE WAS A LOT OF SWELLING AND BRUISING OF THE ANKLE AND SHE WAS UNABLE TO WALK ON IT WITHOUT CRUTCHES UNTIL YESTERDAY. SHE IS WALKING WITH AN AIR CAST TODAY BUT STILL HAS SIGNIFICANT PAIN. [facility] 01/05/2019 20:52:43 9 text/html Emergency Department Follow-Up RecordReported bypatient.Discharge Informationname of ED Urgent Care ([facility]); emergency department discharge date: (Please enter in format 'MM/DD/YYYY') (01/12/2019); date of follow-up phone call: (Please enter in format 'MM/DD/YYYY') (01/14/2019)Transition Care ManagementReported bypatient.Timing:date of discharge: (01/12/2019); date interactive contact was made: (01/14/2019) Facility:discharged to: (Home); Facility Urgent Care ([facility]) Follow Upscheduled no [facility] 01/14/2019 15:35:57 9 text/html Emergency Department Follow-Up RecordReported bypatient.Discharge Informationname of ED Urgent Care ([facility]); emergency department discharge date: (Please enter in format 'MM/DD/YYYY') (01/27/2019); date of follow-up phone call: (Please enter in format 'MM/DD/YYYY') (01/29/2019)Transition Care ManagementReported bypatient.Timing:date of discharge: (01/27/2019); date interactive contact was made: (01/29/2019) Facility:discharged to: (Home); Facility Urgent Care ([facility]) Follow Upscheduled no [facility] 01/29/2019 21:27:53 0 text/html HPI Text Box - TelemedicineReported bypatient.Notes:History of chronic low back pain. She had a microdiskectomy in 2015 and had a very good outcome. Her symptoms subsided and till 2017 when she developed recurrent low back pain. She had a fusion then at L4-5 with some improvement. However she has had chronic low back pain since the surgery that has gotten gradually and progressively worse. She also has radiation of pain into both legs. Her insurance has changed and she cannot see her neurosurgeon. She is having low back pain in bilateral leg pain. She also sustained a severe sprain ankle in December 2018. She was seen at an urgent care and x-ray of the ankle was negative. The pain gradually decreased over the 1st 2 months after the injury, but there has been no improvement since then. She still has occasional swelling of the ankle. She saw an orthopedist in March who x-rayed the ankle and said it was negative for any significant changes. She was given some lace-up splints and told that the symptoms should be gone in 6-8 weeks. The lace-up ankle brace was ineffective and she has been using a previously prescribed air cast off and on since the original injury. [facility] 06/20/2019 20:11:22 OBGyn Episode No OBEpisode recorded.
--- OUTSIDE RECORDS SUMMARY | 2024-06-03 11:38 | XMS_ITS | CCD ---
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) Functional Status Date Name Score 10/22/2017 Karnofsky performance status 90 07/30/2017 Karnofsky performance status 90 08/14/2016 Karnofsky performance status 90 Medications Date Name Route Dose Frequency Instructions Start Date End Date Status Amphetamine-Dextr oamphetamine Oral orally 1.0 tablet 2 times per day administer doses at least 4-6 hours apart; quantity sufficient for 30 days; 0 refills active Lamotrigine Oral orally 1.0 tablet daily qu antity sufficient for 30 days; 3 refills active Gabapentin Oral orally 1.0 capsule 3 times per day quantity sufficient for 30 days; 3 refills inactive Topiramate Oral 24 hr Cap orally 1.0 capsule,ex tended release 24hr daily quantity sufficient for 90 days; 3 refills active Verapamil Oral ER Tab orally 1.0 tablet extended release daily quantity sufficient for 30 days; 3 refills active Sumatriptan Oral orally 100.0 mg every 2 to 4 hours prn migraine headache; until response; not to exceed 2 doses in a 24 hour period active Clonazepam Oral orally 1.0 tablet 2 times p er day quantity sufficient for 30 days; 0 refills active 2017 Levothyroxine Oral PO 1.0 TABLET(S) daily 2017 active 2017 Lorazepam Oral PO 1.0 TABLET(S) Q4H PRN nausea 10/22 inactive 2017 Calcium Carbonate Oral PO 1.0 TABLET(S) BID 2017 active 2017 Polycarbophil Calcium Oral PO 1.0 TABLET(S) daily 10/22 inactive 2017 Multivitamins Oral Tablet PO 1.0 TABLET(S) daily 2017 active 2017 Cholecalciferol Oral PO 1.0 CAPSULE(S) daily 50,000 weekly 2017 active 2017 Aripiprazole Oral PO 2.0 TABLET(S) daily 2017 active 2017 Venlafaxine Oral 24 hr Tab PO 1.0 TABLET, SR OSMOTIC PUSH 24HR daily 2017 active 2017 Propranolol Oral PO 1.0 TABLET(S) BID 2017 active 2016 Venlafaxine Oral 24 hr Cap PO 1.0 CAPSULE(S) daily 08/14 inactive Problems Diagnosis Status Date of Diagnosi s Body mass index (BMI) 27.0-27.9, adult Inactive Body mass index (BMI) 31.0-31.9, adult Inactive 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
--- OUTSIDE RECORDS SUMMARY | 2024-06-03 11:39 | XMS_ITS ---
Author Organization Unknown Address [address] [place] [address] [phone] Phone Care Team Providers Care Acquisitions Assistant Name Role Phone JOB GRIER Attending Unavailable CODY JOSUE Primary Unavailable Immunization Immunization Date Status Additional Notes Code Code System DTP 09/23/1985 Completed 01 CVX OPV 09/23/1985 Completed 02 CVX Hep B, adolescent/high risk infant 11/10/1997 Completed 42 CVX Hep B, adolescent/high risk infant 01/03/1998 Completed 42 CVX Hep B, adolescent/high risk 05/02/1998 Completed 42 CVX COVID-19, mRNA, LNP-S, PF, 1 00 mcg/0.5mL dose or 50 mcg/0.25mL dose 03/11/2021 Completed 207 CVX Results CERVICAL SPINE 2 OR 3 VIEWS - Completed: 03/01/2023 11:10 LOINC: EXAM DESCRIPTION: CERVICAL SPINE 2 OR 3 VIEWS REASON FOR STUDY: Onset 12 yrs ago. pain cervical Rt side radiate up into head, migraines Duration: . TECHNIQUE: Frontal, lateral and odontoid radiographic view(s) of the cervical spine. COMPARISON: None available. FINDINGS: The C7-T1 level is not adequately visualized due to overlapping shoulders on the lateral projection. Mid to upper portion of the dens is obscured by overlapping teeth. Mild retrolisthesis of C2 on C3 and C3 on C4. Multilevel mild intervertebral disc height loss. More pronounced anterior spur formation from C2 through C6. Scattered uncovertebral spurring and facet arthropathy. There is no significant prevertebral soft tissue swelling. IMPRESSION: Multilevel mild cervical disc degeneration and additional findings as above. THIS IS AN ELECTRONICALLY VERIFIED FINAL REPORT 03/02/2023 10:01 AM - Electronically signed by Magnus Nino D.O. AP: VEGA Report ID: [id number] Reading Location: [id number] Social History Type Status Start Date End Date Code Code Syst em Sex Female Hospital Discharge Instructions Should you have any questions prior to discharge, please contact a member of your healthcare team. If you have left the hospital and have any questions, please contact your primary care physician. Reason For Referral No Data Found Plan of Treatment [facility] New Patient 04/04/2022 Encounters Encounter Diagnosis Start Date Code Code Sys tem Spondylolisthesis, cervical region 03/01/2023 SNOMED-CT Personal Care Team Section Performer Name Performer Role Active Date Inactive Da haider ROSS PCP - Primary care physician LIAT ROSS PCP - Primary care physician Imaging Narrative Notes
--- OUTSIDE RECORDS SUMMARY | 2024-06-03 11:39 | XMS_ITS ---
Author Name Interface, [id number] lity Address [address] [facility] [address] [place] [address] Organization [employer] [facility] Address [address] [facility] [address] [place] [address] Care Team Providers Care Sales Administration Manager Name Role Phone Judi Flores Kristin Unavailmariusz carter Allergies and Adverse Reactions Medication/Group Name Reaction Severity Date No known allergies Plan Date Type Value 11/23/2019 APPOINTMENT OV 12 MTHS 11/23/2019 APPOINTMENT OV 12 MTHS 10/30/2018 APPOINTMENT 1 YEAR FOLLOW UP 10/30/2018 APPOINTMENT 1 YEAR FOLLOW UP Reason for Visit OV 12 MTHS Encounters Date Name 10/30/2018 Deep venous thrombos is (disorder) 10/30/2018 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) Diagnostic Results Date Type Test Units Lower Limit Upper Limit Result Flag Comments Status Ordered By Specimen Source Lab Address 09/29 Lab Repor t See elastic attacher chainstitch d 09/29 Lab Repor t See elastic attacher chainstitch d Medications Date Name Route Dose Frequency Instructions Start Date End Date Status Lamotrigine Oral orally 1.0 tablet daily qu antity sufficient for 30 days; 3 refills active Clonazepam Oral orally 1.0 tablet 2 times p er day quantity sufficient for 30 days; 0 refills active Sumatriptan Oral orally 100.0 mg every 2 to 4 hours prn migraine headache; until response; not to exceed 2 doses in a 24 hour period active Amphetamine-Dextr oamphetamine Oral orally 1.0 tablet 2 times per day administer doses at least 4-6 hours apart; quantity sufficient for 30 days; 0 refills active Verapamil Oral ER Tab orally 1.0 tablet extended release daily quantity sufficient for 30 days; 3 refills active Topiramate Oral 24 hr Cap orally 1.0 capsule,ex tended release 24hr daily quantity sufficient for 90 days; 3 refills active 2019 rivaroxaban 10 MG Oral Tablet [Xarelto] orally 1.0 tablet daily active 2019 rivaroxaban 10 MG Oral Tablet [Xarelto] active 2017 Cholecalciferol Oral PO 1.0 CAPSULE(S) daily 50,000 weekly active 2017 Aripiprazole Oral PO 2.0 TABLET(S) daily active 2017 Levothyroxine Oral PO 1.0 TABLET(S) daily active 2017 Multivitamins Oral Tablet PO 1.0 TABLET(S) daily active 2017 Calcium Carbonate Oral PO 1.0 TABLET(S) BID active 2017 Propranolol Oral PO 1.0 TABLET(S) BID active 2017 Venlafaxine Oral 24 hr Tab PO 1.0 TABLET, SR OSMOTIC PUSH 24HR daily 018 active Problems Diagnosis Status Date of Diagnosi s Deep venous thrombosis (disorder) Active 06/2016 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 Vital Signs Date Type Value 10/30/2018 BMI 32.37 10/30/2018 Height 64.00 10/30/2018 Weight 188.60 10/30/2018 Pain Scale 0.00 10/30/2018 BSA 1.96 10/30/2018 Oxygen Saturation 97.00 10/30/2018 Respiratory Rate 16.00 10/30/2018 Heart Beat 74.00 10/30/2018 Body Temperature 98.70 10/30/2018 Intravascular Systolic 107 10/30/2018 Intravascular Diastolic 72 11/23/2019 BSA 1.97 11/23/2019 BMI 32.58 11/23/2019 Height 64.00 11/23/2019 Weight 189.80 11/23/2019 Pain Scale 6.00 11/23/2019 Intravascular Systolic 111 11/23/2019 Intravascular Diastolic 79 11/23/2019 Oxygen Saturation 97.00 11/23/2019 Respiratory Rate 20.00 11/23/2019 Body Temperature 97.50 11/23/2019 Heart Beat 75.00
--- OUTSIDE RECORDS SUMMARY | 2024-06-03 11:39 | XMS_ITS | Encounter Summary ---
Author Organization [facility] Address [address] [place] [address] Care Team Providers Care Teradata Solution Architect Name Role Phone Luz Hussein Primary Care Provider [phone] Aline Monsivais NP Primary Care Provider [phone] Encounter Details Date Type Department Care Team (Late st Contact Info) Description 10/12/2021 [employer] Support Message Enc [facility] [address] [place] [phone] Jack Whitman MD [address] [place] [address] Visit Follow Up Social History Tobacco Use Types Packs/Day Years Used Date Smoking Tobacco: Never Smokeless Tobacco: Never Alcohol Use Standard Drinks/Week Comments Never 0 (1 standard drink = 0.6 oz pur e alcohol) AUDIT-C Answer Date Recorded Q1: How often do you have a drink containing alc ohol? Never 10/01/2020 Average Number of Drinks Not on file 021 Frequency of Binge Drinking Not on file 09/18 Comments No Sex and Gender Information Value Date Recorded Sex Assigned at Female 03/04/2024 4:05 PM PUBLIC SAFETY TELECOMMUNICATOR Legal Sex Female 9:13 AM CDT Gender Identity Not on file Sexual Orientation Not on file COVID-19 Exposure Response Date Recorded In the last 10 days, have yo u been in contact with someone who was confirmed or suspected to have Coronavirus/COVID-19? No / Unsure 10/12/2021 1:51 PM CDT documented as of this encounter Plan of Treatment Not on file documented as of this encounter Visit Diagnoses Not on filedocumented in this encounter Care Teams Teradata Solution Architect Relationship Specialty Start Date End Date Luz Hussein PA [address] [place] [address] PCP - General PHYSICIAN CFO 07/18/21 04/08/22 [place] [address] [place] [address] PCP - General FAMILY PRACTICE 04/09/22 documented as of this encounter
--- OUTSIDE RECORDS SUMMARY | 2024-06-03 11:40 | XMS_ITS | Data Portability ---
Author Organization [facility],, [facility]- ER Address [address] [address] Care Team Providers Care Teaching Music Lessons Name Role Phone FARHANA EGAN Primary Care Provider Assessment Encounter Date Assessment Date Assessment LastModified by Organization Details LastModified Time 02/17/2016 02/17/2016 Depo shot given Im in Left Gluteal handled well. Pt stated she is taking Vitamin C and Vitamin D. [email or web address] Not available 02/17/2016 11:11:52 05/11/2016 05/11/2016 Pt here for depo shot. Doing well and no complaints. Will make next appointment as she leaves =patient will be do in 08/2016 for her well women exam. Injection given by Reena Vilchis MA Not available 05/17/2016 17:37:27 10/04/2016 10/04/2016 This patient is a 36 year old G 0 P 0 who presents for her well women exam - Patient had a Gastric Sleeve surgery in June 2016. She was given VTE prophylaxis. She was using depoprovera for control, but after her surgery she had severe bleeding. She was not a candidate for I estrogen, sos he had a uterine artery embolization. She still needs contraception. She would like to change to an IUD, but she has not had her menses yet. Mathew will give her provera to bring on her menstrual cycle and then she will have her IUD placed. This was discussed with Mathew. arianna Not available 10/17/2016 16:03:02 01/22/2017 01/22/2017 labs drawn and sent to the lab - await the results Not available 01/24/2017 15:09:44 06/26/2017 06/26/2017 This patient is a 37 year old G 0 P 0 who presents because of abnormal uterine bleeding - she has had years when she was on depo provera and the she had gastric bypass and then she needed a uterine artery embolism for abnormal bleeding - she has a Martha iUD placed and she has continued to bleed since it was placed - will obtain a ultrasound and check a CBC to check for anemia. She would like either a ablation or a partial hyster - she does not want to have any children. She is not able to take the Motrin or use Estrogen to help with the bleeding Not available 06/30/2017 18:29:46 Plan of Treatment Reminders Order Date Submit Date Provider Last Modified By Organization Details Last Modified Time Details Appointments None recorded. Lab CBC w/ auto diff 2017 018 [facility], [address], [employer] [address], 8 16:06:57 estradiol, serum 2016 017 [facility], [address], [employer] [address], 7 17:13:45 TSH + T4, serum 2016 017 [facility], [address], [employer] [address], 7 10:09:44 lh + FSH, serum 2016 017 [facility], [address], [employer] [address], 7 10:09:45 progesteron e, free + total, serum 2016 017 [facility], [address], [employer] [address], 7 10:09:45 pap, LB + CT/NG + HPV 2016 017 [facility] ([facility] , [address], [place], [address], 7 10:52:45 Referral None recorded. Procedures None recorded. Surgeries None recorded. Imaging US, transvagina l 2017 018 MIRIAM Not available 8 14:35:44 Medication Orders Depo-Tank Truck Milk Receiver a 150 mg/mL intramuscul ar suspension 2016 017 [id number], [address] [place], [id number], 7 18:06:59 Depo-Tank Truck Milk Receiver a 150 mg/mL intramuscul ar suspension 2015 016 [facility][id number], [address] [place], [id number], 7 18:06:59 Patient TargetsNo targets recorded. Patient Instructions Encounter Date Encounter Id Patient Instructions Last Modified By Organization Details Last Modified Time 10/04/2016 [id number] exercise, SBE encouraged, Calcium and Vit D intake Not available 10/13/2016 15:57:29 06/26/2017 [id number] await the result s of the ultrasound Not available 06/30/2017 18:30:19 Reason for Referral None Reported. Results Created Date Observation Date Name Description Value Unit Range Abnormal Flag Note LastModifiedBy Organization Detail LastModifiedTime 10/07/19 17 10/11/2016 pap, LB + CT/NG + HPV Pap, liquid-based NILM normal DIAGN OSIS: Negat ingris for intra epith elial lesio n or malig tram GONZALES ACY: Satis facto ry for evalu ation / Endoc ervic al/tr ansfo rmati on zone compo nent prese nt. COMME NT: This Pap smear was scree radha with the cheyanne tance of the CYTYC ThinP rep(T M) Imagi ng Syste m and scree radha by a cytot echno logis t. SPECI MEN SOURC E: PAP + HPV PLUS + CT + GC, CERVI KAREN ENDOC ERVIC AL VAGIN AL CLINI KAREN INFOR MARY N: LMP: 2016 Depo Prove ra Provi ded Diagn osis Codes : Z01.4 19,Z1 1.3 Cervi covag inal cytol ogy beba d be consi dered a scree gina proce dure subje ct to false negat sharyn and false posit sharyn. Resul ts are more relia ble when a satis facto ry sampl e is obtai radha on a regul ar repet itive basis , and shoul d be inter prete d toget her with past and curre nt clini karen data. ELECT KRISTI Pastrana BY: Rescr eened By: Mili Jerez, CT (ASCP ) Case Elect kristi pastrana 10/11 Not Available [facility] ([facility]) [address], [place], [address], 10/11/2016 10:52:45 10/07/19 17 10/11/2016 pap, LB + CT/NG + HPV HPV HR(non 16/18) Not Detect ed normal Not Available [facility] ([facility]) [address], [place], [address], 10/11/2016 10:52:45 10/07/19 17 10/11/2016 pap, LB + CT/NG + HPV HPV 18+ Not Detect ed normal Not Available [facility] ([facility]) [address], [place], [address], 10/11/2016 10:52:45 10/07/19 17 10/11/2016 pap, LB + CT/NG + HPV HPV16+ Not Detect ed normal Not Available [facility] ([facility]) [address], [place], [address], 10/11/2016 10:52:45 10/07/19 17 10/11/2016 pap, LB + CT/NG + HPV chlamydia, liquid-based Not Detect ed normal Not Available [facility] ([facility]) [address], [place], [address], 10/11/2016 10:52:45 10/07/19 17 10/11/2016 pap, LB + CT/NG + HPV gonorrhea, liquid-based Not Detect ed normal HPV HR(NO N 16/18 ) (2,3, 4,6,7 ) HPV 18+ (2,3, 4,6,7 ) HPV16 + (2,3, 4,6,7 ) CHLAM YDIA, LIQUI D-BAS ED (5,6, 7) GONOR NATALY, LIQUI D-BAS ED (1,5, 6,7) (1) Rare cross -reac tivit y may occur in this ampli fied DNA GC assay due to certa in strai ns of N. ciner ea, N. subfl yajaira and N. lacta lucretia. (2) The aziza (R) HPV test is FDA-c leare d for ThinP rep(R ) speci mens and detec ts genom ic HPV DNA in the polym orphi c L1 regio n in 14 subty pes: Type 16, Type 18, and other high risk types (31,3 3,35, 39,45 ,51,5 2,56, 58,59 ,66,6 8). The test has been modif ied and valid ated for use in SureP ath(T M) speci mens. (3) HPV types 16 and/o r 18 that were Not Detec letty were undet ectab le or below the pre-s et thres hold. (4) The non-r epeat rate for HPV genot yping assay s varie s from 5 to 15%. In the NIL cytol ogy categ ory, there is a low posit ingris predi ctive value (PPV = 15-20 %) for CIN2+ with a posit ingrsi high risk HPV resul t. (5) Chlam ydia trach omati s (CT) and Neiss eria gonor rhoea e (NG) quali tativ e detec tion is perfo rmed on uroge nital speci mens or urine on one of the below platf orms: -BD Probe wojciech(T M) Qx Ampli fied DNA Assay teste d with the BD Viper (TM) Syste m using Stran d Displ aceme nt Ampli ficat ion techn ology . FDA clear ed for both ThinP rep, SureP ath and urine sampl es. -The Aptim a combo 2(R) Assay detec ts ribos omal RNA (rRNA ) using targe t captu re and Trans cript ion-M ediat ed Ampli ficat ion (TMA) techn ology . FDA clear ed for ThinP rep sampl es. -The aziza (R) CT/NG v2.0 detec ts DNA using Polym erase Chain React ion (PCR) techn ology . FDA clear ed for ThinP rep, male and femal e urine sampl es. (6) This test was evalu ated and its perfo rmanc e rafy cteri stics deter mined by [facility]. It has not been clear ed or appro nguyễn by the U.S. Food and Drug Admin istra tion. The FDA has deter mined that such clear ance or appro gogo is not neces janell. [facility] is certi fied under the Clini karen Labor atory Impro vemen t Act of 1987 (CLIA ) as quali fied to perfo rm high compl exity clini karen testi ng. (7) Resul popeye yoder d be inter prete d toget her with past and curre nt clini karen and labor atory data. Not Available [facility] ([facility]) [address], [place], [address], 10/11/2016 10:52:45 01/23/20 17 01/22/2017 estra diol, serum estradiol 24 pg/mL Warni ng: Fulve stran t (Fasl odex) may inter fere with this assay . ESTRA DIOL PETTY L RANGE S: Petty l Menst ruati ng Femal es Folli cular Phase Petty l 21-25 1 pg/ml Mid-C ycle Phase Petty l 38-64 9 pg/ml Lutea l Phase 21-31 2 pg/ml Post Menop ausal Femal es Not On HRT <10-2 8 pg/ml On HRT <10-1 44 pg/ml Males 11-44 pg/ml Not Available [facility] [address] [place], [address], 01/23/2017 17:13:45 01/23/20 17 01/22/2017 TSH, serum or plasm a TSH 1.19 uIU/m L 0.35-4 .94 Not Available [facility] [address] [place], [address], 01/23/2017 17:13:47 01/23/20 17 01/22/2017 T4, total , serum T4 7.62 ug/dL 4.87-1 1.72 Not Available [facility], [address], 01/23/2017 17:13:48 01/23/20 17 01/22/2017 proge stero ne, serum prog 0.1 NG/mL Proge stero ne Petty l Range s: Males <0.1- 0.2 Petty l Menst ruati ng Femal es: Folli cular Phase <0.1- 0.3 Lutea l Phase 1.2-1 5.9 Post Menop ausal Femal es: <0.1- 0.2 Pregn ant Femal es: First Trime ster 2.8-1 47.3 Secon d Trime ster 22.5- 95.3 Third Trime ster 27.9- 242.5 Not Available [facility] [address] [place], [address], 01/23/2017 17:13:49 01/23/20 17 01/22/2017 FSH (foll icle- stimu latin g hormo ne), serum FSH 7.03 mIU/m L Petty lly Menst ruati ng Femal es FSH Petty l Range Folli cular Phase 3.03- 8.08m IU/mL Mid-C ycle Peak 2.55- 16.69 mIU/m L Lutea l Phase 1.38- 5.47 mIU/m L Post- menop ausal Femal es Petty l Range 26.72 -133. 41 mIU/m L Male Petty l Range 0.95- 11.95 mIU/m L Not Available [place], [address], 01/25/2017 00:21:01 01/23/20 17 01/22/2017 lh (lute inizi ng hormo ne), serum LH 8.18 mIU/m L LH Petty l Range s: Males 0.5-1 2.07 Petty lly Menst ruati ng Femal es: Folli cular Phase 1.80- 11.78 Mid-C ycle Peak 7.59- 89.08 Lutea l Phase 0.56- 14.00 Post Menop ausal Phase witho ut HRT 5.16- 61.99 Not Available [place], [address], 01/25/2017 00:21:09 06/27/19 18 06/26/2017 CBC w/ auto diff WBC 7.1 K/uL 3.5-10 .5 Not Available [facility] Results From [employer] [place] [place], [address] 06/27/2017 16:06:57 06/27/19 18 06/26/2017 CBC w/ auto diff RBC 4.59 M/uL 3.90-5 .10 Not Available [facility] Results [place], [address] 06/27/2017 16:06:57 06/27/19 18 06/26/2017 CBC w/ auto diff HGB 14.5 g/dL 12.0-1 6.0 Not Available [facility] Results [place], [address] 06/27/2017 16:06:57 06/27/19 18 06/26/2017 CBC w/ auto diff HCT 44.5 % 34.9-4 6.0 Not Available [facility] [place], [address] 06/27/2017 16:06:57 06/27/19 18 06/26/2017 CBC w/ auto diff MCV 96.9 fL 81.6-9 8.3 Not Available [facility] Results [facility] [place], [address] 06/27/2017 16:06:57 06/27/19 18 06/26/2017 CBC w/ auto diff MCH 31.6 pg 27.5-3 3.2 Not Available [facility] Results From [facility] [address] [place] [address] [place], [address] 06/27/2017 16:06:57 06/27/19 18 06/26/2017 CBC w/ auto diff MCHC 32.6 g/dL 31.0-3 6.0 Not Available [facility] Results From [facility] [address] [place] [address] [place], [address] 06/27/2017 16:06:57 06/27/19 18 06/26/2017 CBC w/ auto diff RDW-SD 44.1 % 39.0-4 8.0 Not Available [facility] Results [facility] [place], [address] 06/27/2017 16:06:57 06/27/19 18 06/26/2017 CBC w/ auto diff RDW-CV 12.8 % 11.5-1 5.6 Not Available [facility] Results [facility] [place], [address] 06/27/2017 16:06:57 06/27/19 18 06/26/2017 CBC w/ auto diff plt 269.0 K/uL 150.0- 450.0 Not Available [facility] [place], [address] 06/27/2017 16:06:57 06/27/19 18 06/26/2017 CBC w/ auto diff MPV 11.0 fL 9.3-12 .4 Not Available [facility] [address] [place] [address] [place], [address] 06/27/2017 16:06:57 06/27/19 18 06/26/2017 CBC w/ auto diff jarrod % 52.1 % 35.0-7 0.0 Not Available [facility] [address] [place] [address], [address] 06/27/2017 16:06:57 06/27/19 18 06/26/2017 CBC w/ auto diff jarrod # 3.7 K/uL 1.7-7. 0 Not Available [facility] [address] [place] [address], [address] 06/27/2017 16:06:57 06/27/19 18 06/26/2017 CBC w/ auto diff mono % 9.4 % 6.0-14 .0 Not Available [facility] [address] [place] [address], [address] 06/27/2017 16:06:57 06/27/19 18 06/26/2017 CBC w/ auto diff mono # 0.7 K/uL 0.3-0. 9 Not Available [facility] [address] [place] [address], [address] 06/27/2017 16:06:57 06/27/19 18 06/26/2017 CBC w/ auto diff lymph % 36.3 % 15.9-5 0.1 Not Available [facility] [address] [place] [address], [address] 06/27/2017 16:06:57 06/27/19 18 06/26/2017 CBC w/ auto diff lymph # 2.6 K/uL 0.9-2. 9 Not Available [facility] [address] [place] [address], [address] 06/27/2017 16:06:57 06/27/19 18 06/26/2017 CBC w/ auto diff eosin % 1.8 % 0.6-8. 0 Not Available [facility] [address] [place] [address], [address] 06/27/2017 16:06:57 06/27/19 18 06/26/2017 CBC w/ auto diff eosin # 0.1 K/uL 0.1-0. 5 Not Available [facility] [address] [place] [address], [address] 06/27/2017 16:06:57 06/27/19 18 06/26/2017 CBC w/ auto diff baso % 0.4 % 0.0-2. 0 Not Available [facility] [address] [place] [address], [address] 06/27/2017 16:06:57 06/27/19 18 06/26/2017 CBC w/ auto diff baso # 0.0 K/uL 0.0-0. 3 Not Available [facility] [address] [place] [address], [address] 06/27/2017 16:06:57 06/27/19 18 06/26/2017 CBC w/ auto diff Ig% 0 % 0-0 Not Available [facility] [address] [place] [address], [address] 06/27/2017 16:06:57 06/27/19 18 06/26/2017 CBC w/ auto diff Ig# 0.00 X_10^ 3 0.00-0 .04 Not Available [facility] [address] [place] [address], [address] 06/27/2017 16:06:57 12/07/19 17 12/04/2016 US, trans vagin al No observ ation record ed. [facility], [place], [address], 12/06/2016 13:49:08 06/30/19 18 06/29/2017 US, trans vagin al No observ ation record ed. [facility], [place], [address], 06/30/2017 23:24:00 06/30/19 18 06/29/2017 US, trans vagin al No observ ation record ed. [email or web address] [facility], [place], [address], 07/04/2017 15:01:00 Result Notes None recorded. Problems Name Problem SNOMED Code Status Onset Date Resolution Date Notes Provider Name and Address Organization Details Recorded Time Hypothyroi dism 20399662 Active [facility]EL [facility], 7 16:04:00 Obesity 464162475 Completed 06/29/2017 Mathew Griffin NP [address], [place], [address] , [facility], 8 01:10:26 Irritable bowel syndrome 38794016 Active Mathew Griffin NP [address], [place], [address] , [facility], 8 01:06:04 Chronic back pain 694809567 Active Mathew Griffin NP [address], [place], [address] , [facility], 8 01:10:46 Seasonal allergy 697212598 Active Mathew Griffin NP [address], [place], [address] , [facility], 8 01:11:03 Depressive disorder 97311466 Active Mathew Griffin NP [address], [place], [address] , [facility], 8 01:11:24 Anxiety 87582636 Active Mathew Griffin NP [address], [place], [address] , [facility], 8 01:11:38 Family history of breast cancer 012753805 Active Mathew Griffin NP [address], [place], [address] , [facility], 8 01:14:34 Family history of Cardiovasc ular disease 171331096 Jermaine Griffin NP [address], [place], [address] , [facility], 8 01:15:33 Family history of Hypertensi on 495916608 Active Mathew Griffin NP [address], [address], [place], [address] , [facility], 8 01:16:11 Family history of coronary arterioscl erosis 405050365 Active Mathew Griffin NP [address], [address], [place], [address] , [facility], 8 01:16:44 Family history of Thrombosis 403889043 Active Mathew Griffin NP [address], [place], [address] , [facility], 8 01:17:18 Family history: Cerebral palsy 003676226 Active Mathew Griffin NP [address], [place], [address] , [facility], 8 01:18:30 Notes:patient is on coumadin therapy Problem Notes None recorded. Procedures Surgical History Date Name Laterality Status Provider Name and Address Organization Details Recorded Time 06/27/19 17 Gastric bypass for obesity completed Mathew Griffin, RADHA [address], [place], [address], [facility], 10/04/2016 18:13:06 09/02/19 16 Date of Last Pap Smear completed Barbara Waite [facility], 12/01/2015 22:54:10 12/03/19 13 completed Barbara Waite [facility], 12/01/2015 22:54:10 11/19/19 13 Colonoscopy completed Barbara Waite [facility], 12/01/2015 22:55:36 08/03/19 12 completed Barbara Waite [facility], 12/01/2015 22:54:10 08/19/19 07 Colposcopy completed Barbara Waite [place] [facility], 12/01/2015 22:55:36 Imaging Results Imaging Date Name Status LastModified by Organization Details LastModified Time 12/04/2016 US, transvaginal completed [facility], [place], [address], 12/06/2016 13:49:08 06/29/2017 US, transvaginal completed [facility] Megan[facility]gin [facility], [place], [address], 06/30/2017 23:24:00 06/29/2017 US, transvaginal completed [email or web address] [facility]e [facility], [place], [address], 07/04/2017 15:01:00 Procedure Notes None recorded. 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 [employer] Serial Number Lot Number Status Provider Name and Address Organization Details Recorded Time Martha Griffin, ROLL FILLER [address], [place], [address], [facility], 06/26/2017 15:45:57 Allergies No known drug allergies Medications Name Sig Start Date Stop Date Status Note LastModified by Organization Details LastModified Time [place] Thyroid 60 mg tablet 09/03 completed Not Available Not Available Not Available medroxyprog esterone 10 mg tablet 10/04 completed Not Available Not Available Not Available venlafaxine ER 37.5 mg capsule,ext ended release 24 hr 09/03 completed Not Available Not Available Not Available venlafaxine ER 75 mg capsule,ext ended release 24 hr active Not Available Not Available Not Available Carafate 100 mg/mL oral suspension 10/04 completed Not Available Not Available Not Available citalopram 40 mg tablet 10/04 completed Not Available Not Available Not Available Iron (ferrous sulfate) 325 mg (65 mg iron) tablet Take 1 tablet every day by oral route. 06/26 completed Not Available Not Available Not Available fluconazole 150 mg tablet 06/26 completed Not Available Not Available Not Available citalopram 10 mg tablet 09/03 completed Not Available Not Available Not Available venlafaxine ER 150 mg capsule,ext ended release 24 hr active Not Available Not Available Not Available warfarin 2.5 mg tablet active Not Available Not Available Not Available tramadol 50 mg tablet 10/04 completed Not Available Not Available Not Available warfarin 3 mg tablet 06/26 completed Not Available Not Available Not Available levothyroxi ne 75 mcg tablet 06/26 completed Not Available Not Available Not Available propranolol 10 mg tablet 06/26 completed Not Available Not Available Not Available lorazepam 0.5 mg tablet 10/04 completed Not Available Not Available Not Available Depo-Tank Truck Milk Receiver a 150 mg/mL intramuscul ar suspension Inject 150 mg every 3 months by intramusc ular route. 10/04 completed Not Available Not Available Not Available levothyroxi ne 50 mcg tablet active Not Available Not Available Not Available cephalexin 500 mg capsule 09/03 completed Not Available Not Available Not Available pantoprazol e 40 mg tablet,mary yed release 10/04 completed Not Available Not Available Not Available warfarin 2 mg tablet active Not Available Not Available No t Available promethazin e 25 mg tablet 10/04 completed Not Available Not Available Not Available progesteron e micronized 200 mg capsule Take 1 capsule every day by oral route for 10 days. 06/26 completed Not Available Not Available Not Available [place] Thyroid 30 mg tablet 06/26 completed Not Available Not Available Not Available lorazepam 1 mg tablet active Not Available Not Available No t Available warfarin 1 mg tablet 10/04 completed Not Available Not Available Not Available SSD 1 % topical cream 06/26 completed Not Available Not Available Not Available Vitamin D2 1,250 mcg (50,000 unit) capsule active Not Available Not Available Not Available propranolol 20 mg tablet active Not Available Not Available Not Available oxycodone 5 mg tablet 06/26 completed Not Available Not Available Not Available Depo-T[employer] Milk Receiver a 150 mg/mL intramuscul ar syringe Inject 150 mg every 3 months by intramusc ular route. 10/04 completed Not Available Not Available Not Available Calcium 500 1 twice a day active Not Available Not Available No t Available mvi, adult no.1 with vit K active Not Available Not Available Not Available aripiprazol e 2 mg tablet active Not Available Not Available Not Available Eliquis 5 mg tablet 10/04 completed Not Available Not Available Not Available Martha 14 mcg/24 hr (up to 3 years) 13.5 mg intrauterin e device active Not Available Not Available Not Available vit C 500 mg-rutin 10 mg-hesperid n cmp 10 mg-bioflav, cit 200 mg tablet Take by oral route. active Not Available Not Available No t Available Vitals Date Recorded Body height Heart rate Systolic blood pressure Diastolic blood pressure Provider Name and Address Organization Details Last Updated DateTime 02/17/2016 162.56 cm 90 /min 106 mm[Hg] 89 mm[Hg] Reena [facility], 02/17/2016 11:12:24 Date Recorded Body weight Heart rate Body temperature Systolic blood pressure Diastolic blood pressure Provider Name and Address Organization Details Last Updated DateTime 05/11/2016 73647.1 5 g 90 /min 98.2 [degF] 99 mm[Hg] 81 mm[Hg] Reena [facility], 7 11:13:44 Date Recorded Body height Body temperature Respiratory rate Heart rate Body mass index (BMI) Body weight Systolic blood pressure Diastolic blood pressure Provider Name and Address Organization Details Last Updated DateTime 7 162.56 cm 98 [degF] 12 /min 73 /min 30.5 kg/m2 12517.7 2 g 103 mm[Hg] 83 mm[Hg] Mathew Griffin, RADHA [address], [address], [place], [address], [facility], 7 18:17:21 Date Recorded Body height Body temperature Body mass index (BMI) Body weight Systolic blood pressure Diastolic blood pressure Provider Name and Address Organization Details Last Updated DateTime 8 162.56 cm 97.6 [degF] 26.8 kg/m2 19756.8 5 g 99 mm[Hg] 68 mm[Hg] Mathew Griffin, RADHA [address], [address], [place], [address], [facility], 8 15:48:22 Social History Question Answer Notes LastModified by Organizat ion Details LastModified Time Tobacco Smoking Status Never Smoker Mathew Griffin, ROLL FILLER [address], [facility] [address], [place], [address], [facility] - [facility], 08/27/2015 21:38:08 Do You Have An Advance Directive? No Information not available 10/04/2016 What Is Your Level Of Alcohol Consumption? None Information not available 10/04/2016 Is Blood Transfusion Acceptable In An Emergency? Yes Information not available 10/04/2016 What Is Your Level Of Caffeine Consumption? None Information not available 10/04/2016 How Much Tobacco Do You Chew? None Information not available 08/27/2015 Are You Currently Employed? Yes Information not available 08/27/2015 What Type Of Diet Are You Following? REGULAR Information not available 08/27/2015 Which Illicit Or Recreational Drugs Have You Used? 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 With Others Information not available 08/27/2015 Number Of Current Partners? 1 Information not available 08/27/2015 Number Of Lifetime Partners? 35 Information not available 08/27/2015 Marital Status Informatio n not available 08/27/2015 What Was The Date Of Your Most Recent Tobacco Screening? 06/26/2017 Information not available 09/10/2018 How Many Children Do You Have? 0 Information not available 08/27/2015 Performs Monthly Self-breast Exam? Yes Information no t available 08/27/2015 Do You Use Protection During Sex? No Information not available 08/27/2015 What Is Your Relationship Status? Information not available 08/27/2015 Seat Belts Used Routinely Yes Information not available 08/27/2015 Are You Sexually Active? Yes Information not available 08/27/2015 Do You Use Sunscreen Routinely? No Information not available 12/01/2015 Sex: Unknown Functional Status Question Answer Note LastModified by Organizat ion Details LastModified Time Are you able to care for yourself? Yes Information not available 12/01/2015 What is your exercise level? Moderate 3 times a week Information not available 10/04/2016 Mental Status None recorded. Family History Relationship Description Onset Age of this Age Resolved Age Notes LastModified by Organization Details LastModified Time Maternal Grandmother Malignant tumor of breast Not available 2015 21:34:40 Paternal Grandfather Coronary arterioscler osis Not available 2017 15:39:50 Paternal Grandfather Heart disease jgelman Not available 2015 22:53:36 Father Thrombophili a Not available 2017 15:39:50 Brother Cerebral palsy Not available 2017 15:39:50 Sister Depressive disorder jgelman Not available 2015 22:53:36 Mother Hypertensive disorder Not available 2016 18:11:14 Medical History Condition Response Other Y Breast Cancer N Blood Transfusion N Lung Disease N Depression Y Defects or Inherited Disease N Breast Problem N Anesthesia Complications N Anxiety Disorder Y Obesity N Arthritis N Polyps N Infertility N Polycystic Ovarian Syndrome N Interstitial Cystitis N Acid Reflux (GERD) N Cancer N Stroke N Varicosities N Endometriosis N High Cholesterol N Fibromyalgia N Headaches N Irritable Bowel Syndrome Y Kidney Disease N Heart Problems N Migraines N Thyroid Problems Y Kidney or Bladder Problems N GI Problems N Acne N Eating Disorder N Anemia N Multiple Sclerosis N Psychiatric Illness N Diabetes N Ovarian Cancer N Fibroids N Eczema N Abuse/Domestic Violence N Asthma N Lupus N Toxic Shock Syndrome N Mitral Valve Prolapse N Hepatitis N Heart Disease N Pre-Eclampsia N Hypertension N Osteoporosis N Thrombophilias N Gynecological History Statement/Question Response Abnormal Pap N Date of LMP 07/29/2016 STIs/STDs N HPV Vaccine N Age at Menarche 11 Current Control Method Condoms 12/02/2012 08/03/2011 Sexually Active? Y Menses Monthly N Date of Last Pap Smear 09/02/2015 Sexual Problems? N Desired Control Method IUD LMP Approximate N Obstetrics History GPAL:G 0 P 0 0 0 0 Type Value Living 0 Total 0 Past Encounters Encounter ID Performer Location Encounter Start Date Encounter Closed Date Diagnosis/Indication Diagnosis SNOMED-CT Code Diagnosis ICD10 Code Diagnosis Note [id number] Barbara [facility] Main Office [address] [place] [address] 08/26/2015 11:03:52 08/26/2015 13:14:50 Contraception care 220268171 Z30.42 patient here for her depo provera injection - LOT:A1627 Exp 04/06 [id number] Barbara [facility] Main Office [address] [place] [address] 09/16/2015 10:56:31 09/16/2015 12:05:04 Gynecologic examination 24806090 Z01.419 within normal limits [id number] [facility] Main Office [address] [place] [address] 11/25/2015 11:02:34 11/25/2015 11:21:50 Contraception care 004648451 Z30.42 patient here for her depo provera injection - LOT:A1627 Exp 04/06 [id number] [facility] Main Office [address] [place] [address] 02/17/2016 10:59:43 02/17/2016 11:17:43 Uses depot contraception 789591746 Z30.42 [id number] [facility] Main Office [address] [place] [address] 05/11/2016 10:59:19 05/11/2016 11:18:57 Contraception care management 385902953 Z30.9 [id number] [facility] Main Office [address] [place] [address] 10/04/2016 17:57:37 10/04/2016 18:44:17 Gynecologic examination 50202878 Z01.419 Z11.3 [id number] [facility] Main Office [address] [place] [address] 01/22/2017 14:26:35 01/22/2017 16:21:21 Amenorrhea 30376598 N91.2 [id number] Mathew Griffin NP Main Office [address] [place] [address] 06/26/2017 15:29:07 06/26/2017 16:33:30 Abnormal vaginal bleeding 812769404 N93.9 Health Concerns Section Related Observation LastModified by Organization Detai ls LastModified Time None Recorded Concern Status LastModified by Organization Details LastModified Time None Recorded Advance Directives Directive N: Payers Encounter Date Sequence Insurance Name Policy Number Policy Mas Covered Member ID Mas Member ID Guarantor Name 02/17/2016 1 [employer] [employer] - [employer] [address] Jeremías [id number] 05/11/2016 1 [place] [employer] 112 [address] Morales Jeremías [id number] 10/04/2016 1 [place] [employer] [address] Jeremías [id number] 01/22/2017 1 [place] [employer] - [employer]GRAM [address] Jeremías [id number] 06/26/2017 1 [place] [employer] 112 Shine Morales Jeremías [id number] Notes Date Note Type Note Provider Name and Address Organization Details Recorded Time 02/17/2016 text/html patient for her depo injection Barbara CARMEL Patel [facility], 02/20/2016 18:11:08 05/11/2016 text/html patient for her depo injection Barbara CARMEL Patel [facility], 05/19/2016 15:26:48 10/04/2016 text/html Annual GYNReport ed bypatient.Menstrua l cycle:has not had a cycle since Urinary symptoms:No hematuria; No incontinence Vulva:No genital lesion Vagina:Normal vaginal discharge Breast:No breast pain; No breast lump; No nipple discharge Current Contraception:[place] gamous relationship; Condoms; wants a Martha placed when on cycle Sexual complaints:No sexual complaints; No pain during intercourse; Normal libido Menopausal Symptoms:No menopausal symptoms; Normal vaginal lubrication Psychological symptoms:No depression; No anxiety; No PMDD Preventive measures:Encourage self breast examination; Encourage regular exercise; Followed with Q3 year pap smear and high risk HPV typing Patient in for annual building specialist appointment. [facility], 10/17/2016 16:04:15 01/22/2017 text/html patient for Cribspot work - she still has not had a cycle - even after she was given progesterone twice [facility]bar[facility], 01/24/2017 20:49:13 06/26/2017 text/html the patient is here with abnormal bleeding - she states that she has been bleeding since the IUD was placed - she has had a problem with either not bleeding or bleeding to much = the patient is no having any children so is open to an ablation or partial hyster at this time to stop bleeding - the patient continues to lose weight after her gastric surgery which caused her to be on Warfarin Mathew Griffin, ROLL FILLER [address], [place], [address], [facility], 06/30/2017 18:31:22 OBGyn Episode No OBEpisode recorded.
--- OUTSIDE RECORDS SUMMARY | 2024-06-03 11:40 | XMS_ITS | Patient Health Record ---
Author Organization 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 Name Role Phone Varsha Turner Primary Care Provider Un available Joseluis Hedrick Unavailable [phone] Alpesh Regalado Unavailable Unavailable Allergies Allergen (clinical drug ingredient) Drug/Non Drug Allergy documented on EMR Reaction Allergy Type Onset Date Status Mold sneezing, couging, headaches, runny nose, sinus drainage Allergy Active Pollen Pollen sneezing, dry and itchy eyes, watery eyes, runny nose, sinus drainage Allergy Active Reason For Referral No Information Medications Medication SIG (Take, Route, Frequency, Duration) Notes Start Date End Date Status Vyvanse 50 MG 1 capsule Orally Daily Active Botox 155 units once every 3 months Active Verapamil HCl ER 120 MG 1 tablet Orally Once a day Active ARIPiprazole 10 MG 1 tablet Orally Once a day Active Venlafaxine HCl ER 150 MG 1 capsule Orally Daily Active Aimovig 140 mg/ml 1 SubQ Once Monthly Active Propranolol HCl 40 MG 1 tablet Orally Twice a day Active Celecoxib 100 MG 1 capsule Orally Twice a day Active clonazePAM 1 MG 1 tablet Orally as needed Active Donepezil HCl 2.5 mg daily Act ingris Cetirizine HCl 10 MG 1 tablet Orally Onc e a day Active Xarelto 10 MG 1 tablet Orally Daily Active Omeprazole 40 MG 1 capsule Orally Daily Active Levothyroxine Sodium 50 MCG 1 tablet in the morning on an empty stomach Orally Daily Active lamoTRIgine 200 MG 1 tablet Orally Once a day Active Eszopiclone 2 MG 1 tablet Orally Daily Active Social History Tobacco Use: Social History Observation Description Date Details (start date - stop date) Never Smoker NA - NA Smoking Question Answer Notes Tobacco Status Never smoked Problems Problem Type SNOMED Code ICD Code Onset Dates Problem Status W/U Status Risk Notes Problem Chronic pain syndrome (169848391) Chronic pain syndrome (G89.4) Active confirmed Problem Chronic migraine (985064078) Chronic migraine (G43.709) Active confirmed Plan Of Treatment No Information Insurance Providers Payer Name Payer Address Payer Phone Subscriber Number Group Number Insured Name Patient Relationship to Insured Coverage Start Date Coverage End Date [place] [address] [place] [address] [phone] [id number] Deja Ngo Self - patient is the insured Medical (General) History Medical History History ICD Code Depression Bipolar Disorder GERD/Reflux Thyroid Disease: Hypo Sleep Apnea Migraines Clotting Disorder Chronic Pain Post-Viral Syndrome Chronic Fatigue Syndrome Surgical History Surgery Date(Month/Year) Microdiscectomy Gastric Sleeve Hysterectomy Spinal Fusion Ankle Soft Tissue Reconstruction Ankle Debridement
--- OUTSIDE RECORDS SUMMARY | 2024-06-03 11:40 | XMS_ITS | Data Portability ---
Author Organization [facility], [address] [facility]rology ([place]) Address [address] [place] [address] Care Team Providers Care Cooler Supervisor Name Role Phone KLAUDIA ROSS Primary Care Provider CHARISMA MUHAMMAD Neurologist MAYDA COBB Chiropractic Teacher Unavaila ble Assessment Encounter Date Assessment Date Assessment LastModified by Organization Details LastModified Time 02/27/2024 02/27/2024 1. Sebaceous cys t in the pubic area. Start Bactrim. Talked about the risk and benefits and why I will go ahead and treat this as there is a firm cyst deeper down. It does not feel as if it would be able to be popped or lanced. 2. Chronic post-COVID syndrome. She is following with a psychiatrist and also has appointments with in [place] for follow-up on this. [facility]. 3. Depressive disorder with anxiety. Again she sees psychiatry and is on medications for these concerns. 4. 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 We will continue this medicine. 5. She has a history of tardive dyskinesia and does have a tremor. She is on a medicine called [facility] for this. She says it is working. She will return in 6 months at which time she will have a Pap smear mammogram monofilament examination and laboratory testing. She agrees with this plan. Total amount of time 30 minutes Not available 03/03/2024 18:58:12 03/06/2024 03/06/2024 We discussed the culture and results should be back in 2 to 3 days. If it does come back infected we will place her on the appropriate antibiotic. In the meantime she should keep the area clean twice a day with soap and water. Keep it covered. She is on blood thinner so should she have bleeding through the pressure dressing that we placed on it here today, she should apply another dressing over the top of it. If she bleeds through that she should come back in and let us take a look at it. She should watch for further signs of infection such as redness, drainage, increasing size or pain. If that occurs she should follow-up immediately. Patient verbalizes understanding and agreement with the treatment plan. Patient will continue to follow-up for acute health issues and routine medication checks. [email or web address] Not available 03/06/2024 10:38:26 05/29/2024 05/29/2024 1. Chronic back pain and degenerative disc disease. I will support her in her claims for disability adjustments at her work to include using the bathroom closest to her and using a stool with a back support. I will get the paperwork completed and she says that I can mail it to her. 2. We reviewed her chart for other concerns. She has hypothyroidism and is due for a TSH check. 3. She is due for a mammogram screening and an order sent to stop the hospital. 4. Hepatitis C screening is due. 5. She has obesity. She is now on naltrexone which may help with this. She is not able to exercise vigorously. Also, some of her psychiatric medications can cause weight gain. We talked about calorie restriction and doing any activities that she could possibly manage. 6. She has a requirement for chronic anticoagulation due to a factor V problem and easily clotting. She has been taking this medicine appropriately. We talked about how she should not use it with anti-inflammatorie s. She continues on several medications for anxiety and depression and is under the care of a psychiatrist. She sees them on a regular basis. I will see her back in 6 months at which time she says it will be for a wellness physical through her insurance company. She knows to call with any concerns. She agrees with this plan. Total time 20 minutes [email or web address] Not available 05/29/2024 11:10:02 Plan of Treatment Reminders Order Date Submit Date Provider Last Modified By Organization Details Last Modified Time Details Appointments [facility] Patient 30.EST 2024 09:30A M Dr. Klaudia Dyer Not available Not available Not available Lab hepatiti s C Ab, serum 2024 025 [facility] - [facility], [address] [place] [address], [address], 05/29/2024 19:23:12 TSH, ultra-se nsitive, serum 2024 025 [facility], [address] [place] [address], [address], 05/29/2024 18:50:05 culture, aerobic - location : pubic mons left side 2024 025 [email or web address] [facility], [address] [place] [address], [address], 03/24/2024 15:50:51 CMP, serum or plasma 2023 024 [place] [facility], [address] [place] [address], [address], 12/14/2023 10:42:01 magnesiu m, serum or plasma 2023 024 [facility], [address] [place] [address], [address], 12/14/2023 10:42:04 vitamin B12, serum 2023 024 [facility], [address] [place] [address], [address], 12/14/2023 10:43:38 Referral neurolog ist referral - please schedule first availabl e (Linh akhtar or Mehrdad lehman); pt is already an establis hed patient for migraine s/memory issues. 2023 024 [email or web address] Nataly Centralized Referral Team, [address] [place], [address], 01/15/2024 16:02:15 orthoped ic surgeon referral 2023 024 [email or web address] Gus Londono MD, [address] [place] [address], [address], 12/19/2023 16:55:00 Procedures None recorded . Surgeries None recorded . Imaging MAMMO, screenin g, digital, bilatera l 2024 [facility], [address] [place], [address], 05/29/2024 11:40:32 MRI, shoulder , w/o contrast - please schedule first availabl e [address] [facility], [address] [place], [address], 01/01/2024 12:29:57 Medication Orders Bactrim DS 800 mg-160 mg tablet 2024 025 [id number], [address] [place] [address], [place], [id number], 05/29/2024 10:27:00 cycloben zaprine 5 mg tablet 2023 025 [facility][id number], [address], [place], [id number], 02/27/2024 13:08:54 Patient TargetsNo targets recorded. Patient Instructions Encounter Date Encounter Id Patient Instructions Last Modified By Organization Details Last Modified Time 12/12/2023 [id number] Follow-up as scheduled, PRN in interim Not available 12/12/2023 13:59:09 Reason for Referral Orthopedic Surgeon Referral for Pain of right shoulder joint continued shoulder pain s/p fall and PT h/o rotator cuff repair Referring Physician: Lianne Restrepo, Family Medicine, Encounter Date: 12/12/2023 Neurologist Referral for Res ting tremor resting tremor please schedule first available ([place] or [place]); pt is already an established patient for migraines/memory issues. Referring Physician: Lianne Restrepo, [facility], Encounter Date: 12/13/2023 Results Created Date Observation Date Name Description Value Unit Range Abnormal Flag Note LastModifiedBy Organization Detail LastModifiedTime 12/13/1912/14/2023 CMP, serum or plasm a comp. met. panel Not Available [facility] [address] [place] [address], [address], 12/14/2023 10:42:01 12/13/1912/14/2023 CMP, serum or plasm a sodium 139 mmol/ L 136-14 6 Not Available [facility] [address] [place] [address], [address], 12/14/2023 10:42:01 12/13/1912/14/2023 CMP, serum or plasm a potassium 3.8 mmol/ L 3.5-5. 1 Not Available [facility] [address] [place] [address], [address], 12/14/2023 10:42:01 12/13/1912/14/2023 CMP, serum or plasm a chloride 109 mmol/ L 98-110 Not Available [facility] [address] [place] [address], [address], 12/14/2023 10:42:01 12/13/1912/14/2023 CMP, serum or plasm a CO2 22 mEq/L 20-32 Not Available [facility] [address] [place] [address], [address], 12/14/2023 10:42:01 12/13/1912/14/2023 CMP, serum or plasm a anion gap 12 mmol/ L 10-22 Not Available [facility] [address] [place] [address], [address], 12/14/2023 10:42:01 12/13/1912/14/2023 CMP, serum or plasm a glucose 112 mg/dL 70-100 high Not Available [facility] [address] [place] [address], [address], 12/14/2023 10:42:01 12/13/1912/14/2023 CMP, serum or plasm a calcium 9.4 mg/dL 8.4-10 .4 Not Available [facility] [address] [place] [address], [address], 12/14/2023 10:42:01 12/13/1912/14/2023 CMP, serum or plasm a total protein 6.9 g/dL 6.4-8. 3 Not Available [facility] [address] [place] [address], [address], 12/14/2023 10:42:01 12/13/1912/14/2023 CMP, serum or plasm a albumin 4.5 g/dL 3.5-5. 3 Not Available [facility] [address] [place] [address], [address], 12/14/2023 10:42:01 12/13/1912/14/2023 CMP, serum or plasm a ALP 117 U/L 44 - 127 Not Available [facility] [address] [place] [address], [address], 12/14/2023 10:42:01 12/13/1912/14/2023 CMP, serum or plasm a AST (SGOT) 21 U/L 10-40 Not Available [facility] [address] [place] [address], [address], 12/14/2023 10:42:01 12/13/1912/14/2023 CMP, serum or plasm a total bilirubin 0.5 mg/dL 0.2-1. 0 Not Available [facility] [address] [place] [address], [address], 12/14/2023 10:42:01 12/13/1912/14/2023 CMP, serum or plasm a ALT (SGPT) 14 U/L 8-35 Not Available [facility] [address] [place] [address], [address], 12/14/2023 10:42:01 12/13/1912/14/2023 CMP, serum or plasm a BUN 11 mg/dL 7-21 Not Available [facility] [address] [place] [address], [address], 12/14/2023 10:42:01 12/13/1912/14/2023 CMP, serum or plasm a creatinine 0.9 mg/dL 0.7-1. 3 Not Available [facility] [address] [place] [address], [address], 12/14/2023 10:42:01 12/13/1912/14/2023 CMP, serum or plasm a GFR(non-afri can bruneian) 73 Not Available [facility] [address] [place] [address], [address], 12/14/2023 10:42:01 12/13/1912/14/2023 CMP, serum or plasm a GFR() 88 (CROTCH BREAKER CATE KIDNE Y DISEA SE HAS A GFR LESS THAN 60 ML/AL N/1.7 3 MM FOR A PERIO D OF THREE MONTH S OR MORE. ) Not Available [facility] [address] [place] [address], [address], 12/14/2023 10:42:01 12/13/1912/14/2023 magne sium, serum or plasm a magnesium- Not Available [facility] [address] [place] [address], [address], 12/14/2023 10:42:04 12/13/1912/14/2023 magne sium, serum or plasm a magnesium 2.2 mg/dL 1.6-2. 6 Not Available [facility] [address] [place] [address], [address], 12/14/2023 10:42:04 12/13/19 24 12/14/2023 vitam in B12, serum vitamin B12 452 pg/mL 180-91 4 <145 pg/mL = Defic ient 145 - 180 pg/mL = Inter media te Not Available [facility] [address] [place] [address], [address], 12/14/2023 10:43:38 03/06/19 25 03/08/2024 C WOUND wound culture (swab) with gram stain (ne Print Date/ Time: 2024 11:43 ORNAMENTAL METAL WORKER Patie n DEJA NGO t: Micro biolo gy - Wound s and Tissu es Legen d: c=Cor recte d, F=Res ult Comme nt, S=Adeline cepti ble, I=Int ermed iate, R=Res istan t, N/A=N ot Appli cable PROCE DURE: Wound Cultu re (swab ) ACCES KENTRELL: 939 with Gram Stain [] SOURC E: Other BODY SITE: COLLE CTED DATE/ TIME: 2024 09:38 ORNAMENTAL METAL WORKER RECEI JESUSITA DATE/ TIME: 2024 19:17 ORNAMENTAL METAL WORKER START DATE/ TIME: 2024 19:17 ORNAMENTAL METAL WORKER FREE TEXT SOURC E: PUBIC MONS LEFT SIDE SWAB FI NAL REPOR TS Final Repor t [] Verif ied Date/ Time: 2024 11:43 ORNAMENTAL METAL WORKER No growt h after 36-48 hours incub ation MS ELIMI NARY REPOR TS Preli minar y Repor t [] Verif ied Date/ Time: 2024 12:13 ORNAMENTAL METAL WORKER No growt h after 12-[address] AINS/ PREPA RATIO NS GS [] Verif ied Date/ Time: 2024 20:42 ORNAMENTAL METAL WORKER Rare (<1/h pf) neutr ophil s Rare (<1/h pf) epith elial Cells No organ isms seen Not Available [facility] Only - [facility] [address] [facility] [place], [address], 03/08/2024 12:43:40 03/06/19 25 03/07/2024 C WOUND wound culture (swab) with gram stain (ne Print Date/ Time: 2024 12:13 ORNAMENTAL METAL WORKER PatiDEJA Carrera t: Micro biolo gy - Wound s and Tissu es Legen d: c=Cor recte d, F=Res ult Comme nt, S=Adeline cepti ble, I=Int ermed iate, R=Res istan t, N/A=N ot Appli cable PROCE DURE: Wound Cultu re (swab ) ACCES KENTRELL: [phone] with Gram Stain [] SOURC E: Other BODY SITE: COLLE CTED DATE/ TIME: 2024 09:38 ORNAMENTAL METAL WORKER RECEI JESUSITA DATE/ TIME: 2024 19:17 ORNAMENTAL METAL WORKER START DATE/ TIME: 2024 19:17 ORNAMENTAL METAL WORKER FREE TEXT SOURC E: PUBIC MONS LEFT SIDE SWAB MS ELIMI NARY REPOR TS Preli minar y Repor t [] Verif ied Date/ Time: 2024 12:13 ORNAMENTAL METAL WORKER No growt h after 12-[address] AINS/ PREPA RATIO NS GS [] Verif ied Date/ Time: 2024 20:42 ORNAMENTAL METAL WORKER Rare (<1/h pf) neutr ophil s Rare (<1/h pf) epith elial Cells No organ isms seen Not Available [facility] Only - [facility] [address] [facility] [place], [address], 03/07/2024 13:13:42 03/06/19 25 03/06/2024 C WOUND wound culture (swab) with gram stain (ne Print Date/ Time: 2024 20:42 ORNAMENTAL METAL WORKER DEJA Doyle t: Micro biolo gy - Wound s and Tissu es Legen d: c=Cor recte d, F=Res ult Comme nt, S=Adeline cepti ble, I=Int ermed iate, R=Res istan t, N/A=N ot Appli cable PROCE DURE: Wound Cultu re (swab ) ACCES KENTRELL: [phone] with Gram Stain [] SOURC E: Other BODY SITE: COLLE CTED DATE/ TIME: 2024 09:38 ORNAMENTAL METAL WORKER RECEI JESUSITA DATE/ TIME: 2024 19:17 ORNAMENTAL METAL WORKER START DATE/ TIME: 2024 19:17 ORNAMENTAL METAL WORKER FREE TEXT SOURC E: PUBIC MONS LEFT SIDE SWAB ST AINS/ PREPA RATIO NS GS [] Verif ied Date/ Time: 2024 20:42 ORNAMENTAL METAL WORKER Rare (<1/h pf) neutr ophil s Rare (<1/h pf) epith elial Cells No organ isms seen Not Available [facility] Only - [address], [address], 03/06/2024 21:42:31 04/06/19 25 04/07/2024 hemog lobin A1c + avera ge gluco se, QN, blood hemoglobin A1C Not Available [facility] [address] [place] [address], [address], 04/07/2024 16:16:06 04/06/19 25 04/07/2024 hemog lobin A1c + avera ge gluco se, QN, blood HGB A1C 5.3 %_A1C 4.3 - 5.6 Not Available [facility] [address] [place] [address], [address], 04/07/2024 16:16:06 04/06/19 25 04/07/2024 hemog lobin A1c + avera ge gluco se, QN, blood estimated average glucose 105 mg/dL Not Available [facility] [address] [place] [address], [address], 04/07/2024 16:16:06 05/30/19 25 05/29/2024 TSH, ultra -sens itive , serum TSH3 1.559 uIU/m L .340-5 .600 Not Available [facility] [address] [place] [address], [address], 05/29/2024 18:50:05 05/30/19 25 05/29/2024 hepat itis C Ab, serum hepatitis C Ab NONREA CTIVE nonrea ctive Not Available [facility] [address], [address], 05/29/2024 19:23:12 12/05/19 24 10/23/2023 XR, shoul denise, 2 or more view No observ ation record ed. [email or web address] [facility] - [place], [address], 12/05/2023 08:10:54 12/17/1903/01/2023 imagi ng/di agnos tic resul t No observ ation record ed. [email or web address] Not Available 17:54:18 01/01/20 MRI, shoul denise, w/o contr ast No observ [facility]ion [facility] [place] [address] Radiology [address] [place], [address], 01/05/2024 09:44:20 05/21/1910/23/2023 XR, shoul denise, 2 or more view No observ ation record ed. jsaling [facility] - [place], [address], 05/20/2024 14:51:28 Result Notes None recorded. Problems Name Problem SNOMED Code Status Onset Date Resolution Date Notes Provider Name and Address Organization Details Recorded Time Pain of right shoulder joint 23724859985 859666 Active 2023 Babs Dial [facility], [facility] 4 12:25:50 Herpes labialis 4246124 Active 2023 Klaudia Dyer MD [address] [place] [address], [address] , [facility] 4 14:20:02 Numbness and tingling sensation of skin 39693820865 2 Active 2023 LIANNE RESTREPO MD [address] [facility] [place], [address] , [facility] 4 11:54:36 Tardive dyskinesi a 032160624 Active LIANNE RESTREPO MD [address] [facility], [facility] [place], [address] , [facility] 4 12:07:18 Resting tremor 36533595 Active 2023 LIANNE RESTREPO MD [address] [facility], [facility] [place], [address] , [facility] 4 12:15:35 Hyperglyc emia 37207233 Active [address] [facility] 4 12:26:06 Rupture of tendon of biceps 228933147 Active 2023 Gus Londono MD [address] [facility], [facility] [place], [address] , [facility] 4 09:45:22 Sebaceous cyst of skin 626987176 Active 2024 Klaudia Dyer MD [address] [place] [address], [place], [address] , [facility] 5 13:36:09 Menopausa l symptom 45210001 Active 2024 [facility] 16:32:30 Abscess 027498219 Completed 202405/29/2024 Klaudia Dyer MD [address] [facility], [facility] [place], [address] , [facility] 5 10:50:56 Mast cell disorder 375511845 Active 2024 Klaudia Dyer MD [address] [facility], [facility] [place], [address] , [facility] 5 18:13:21 Morbid obesity 843014253 Active Not Available [employer] 5 10:53:34 Blood coagulati on disorder 71816746 Active [address] [facility] 4 09:26:20 Anxiety 94926657 Active 2023 [facility] 4 09:26:15 Factor II deficienc y 51203844 Active [address] [facility] 4 09:26:37 Chronic migraine without aura 65332312708 4105 Active 2023 [facility] 4 09:26:24 Chronic post-COVI D-19 syndrome 0095954790 Active 2023 [facility] 4 09:26:57 Daytime somnolenc e 36031551307 0 Active 2023 Raissa [facility] 4 09:26:30 Depressiv e disorder 73527932 Active [address] [facility] 4 09:26:33 Hypothyro idism 68248787 Active 2023 [facility] 4 09:26:42 Obstructi ve sleep apnea syndrome 91803693 Active 20[address] [facility] 4 09:26:46 Problem Notes None recorded. Procedures Surgical History Date Name Laterality Status Provider Name and Address Organization Details Recorded Time 03/06/19 25 I&D completed Km Hernandez PA-C [address] [place] [address], [address], [facility] 03/06/2024 10:37:19 03/21/19 23 repair of shoulder completed [facility] 12/12/2023 12:05:12 07/20/19 20 repair of ankle completed [facility] 12/12/2023 12:03:19 11/19/19 18 spinal arthrodesis completed [facility] 12/12/2023 12:09:10 06/19/19 18 sleeve resection of stomach completed [facility] 12/12/2023 12:05:34 11/19/19 14 discectomy of spine completed [facility] 12/12/2023 12:08:49 Colonoscopy with biopsy completed Not Available Health Note 09/01/2023 00:19:53 Partial hysterectomy completed Not Available Health Note 09/01/2023 00:19:53 Imaging Results Imaging Date Name Status LastModified by Organiz ation Details LastModified Time 10/23/2023 XR, shoulder, 2 or more view completed [address] [place], [address], 12/05/2023 08:10:54 03/01/2023 imaging/diagn ostic result completed [email or web address] Information not available 12/17/2023 17:54:18 01/01/2024 MRI, shoulder, w/o contrast completed [address] Radiology [address] [place], [address], 01/05/2024 09:44:20 10/23/2023 XR, shoulder, 2 or more view completed [facility] [place], [address], 05/20/2024 14:51:28 Procedure Notes None recorded. Medical Equipment None Reported. Allergies Allergen ID Allergen Name Allergen Category Reaction Reaction Severity Criticality Documentation Date Start Date Code Code System Note Provider Name and Address Organization Details Recorded Time 0989165 Abilify medicatio n other Not available [facility] 09/02/2023 95889 3 RxNorm Tardi ve dyski nesia Not Available Not Available Not Available Medications Name Sig Start Date Stop Date Status Note LastModified by Organization Details LastModified Time venlafaxine ER 75 mg capsule,ext ended release 24 hr TAKE 1 CAPSULE BY MOUTH EVERY DAY WITH FOOD active Not Available Not Available No t Available lamotrigine 200 mg tablet TAKE 1 TABLET BY MOUTH EVERY MORNING active Not Available Not Available No t Available valacyclovi r 1 gram tablet TAKE 2 TABLETS BY MOUTH EVERY 12 HOURS FOR 1 DAY active Not Available Not Available No t Available sumatriptan 100 mg tablet TAKE 1 TABLET BY MOUTH AT ONSET OF MIGRAINE HEADACHE. MAY REPEAT IN 2 HOURS NEEDED 05/29 completed Not Available Not Available Not Available prazosin 1 mg capsule TAKE 1 CAPSULE BY MOUTH EVERY DAY active Not Available Not Available No t Available dextroamphe tamine-amph etamine 10 mg tablet TAKE 1 TABLET BY MOUTH EVERY DAY AT NOON 05/29 completed Not Available Not Available Not Available clonazepam 1 mg tablet TAKE 1/2 TABLET BY MOUTH EVERY DAY AT BEDTIME NEEDED FOR INSOMNIA OR ANXIETY active Not Available Not Available No t Available venlafaxine ER 150 mg capsule,ext ended release 24 hr TAKE 1 CAPSULE BY MOUTH EVERY DAY active Not Available Not Available No t Available sulfamethox azole 800 mg-trimetho prim 160 mg tablet TAKE 1 TABLET BY MOUTH EVERY 12 HOURS FOR 7 DAYS 05/29 completed Not Available Not Available Not Available oxycodone-a cetaminophe n 5 mg-325 mg tablet TAKE 1 TABLET BY MOUTH EVERY 6 HOURS NEEDED FOR PAIN OR CHRONIC PAIN 09/01 completed Not Available Not Available Not Available propranolol 10 mg tablet TAKE 1 TABLET BY MOUTH THREE TIMES DAILY active Not Available Not Available No t Available propranolol 40 mg tablet TAKE 1 TABLET BY MOUTH TWICE DAILY 09/01 completed Not Available Not Available Not Available benzonatate 100 mg capsule TAKE 1 CAPSULE BY MOUTH THREE TIMES DAILY NEEDED 09/01 completed Not Available Not Available Not Available levothyroxi ne 50 mcg tablet TAKE 1 TABLET BY MOUTH EVERY DAY 2024 active Not Available Not Available Not Avai lable benztropine 2 mg tablet 09/01 completed Not Available Not Available Not Available hydroxyzine HCl 25 mg tablet TAKE 1 TABLET BY MOUTH TWICE DAILY NEEDED FOR ANXIETY 09/01 completed Not Available Not Available Not Available epinephrine 0.3 mg/0.3 mL injection, auto-inject or INJECT 0.3MG IN THE MUSCLE DIRECTED active Not Available Not Available No t Available propranolol 20 mg tablet TAKE 1 TABLET BY MOUTH TWICE DAILY NEEDED FOR ANXIETY. DO NOT TAKE AT BEDTIME DOSE 09/01 completed Not Available Not Available Not Available dextroamphe tamine-amph etamine 5 mg tablet TAKE 1 TABLET BY MOUTH EVERY DAY IN THE MORNING 10/22 completed Not Available Not Available Not Available prazosin 2 mg capsule TAKE 1 CAPSULE BY MOUTH EVERY DAY PLUS 1 MG TO EQUAL 3 MG EVERY NIGHT AT BEDTIME active Not Available Not Available No t Available amoxicillin 875 mg-potassiu m clavulanate 125 mg tablet TAKE 1 TABLET BY MOUTH TWICE DAILY FOR 7 DAYS 05/29 completed Not Available Not Available Not Available rizatriptan 5 mg tablet TAKE 1 TABLET BY MOUTH AT ONSET OF HEADACHE. MAY REPEAT EVERY 2 HOURS NEEDED. MAXIMUM 3 TABLETS IN 24 HOURS active Not Available Not Available No t Available modafinil 100 mg tablet TAKE 1/2 TABLET BY MOUTH EVERY DAY IN THE MORNING FOR 1 WEEK. INCREASE TO 1 TABLET DAILY 09/01 completed Not Available Not Available Not Available aripiprazol e 10 mg tablet TAKE 1 TABLET BY MOUTH EVERY DAY 09/01 completed Not Available Not Available Not Available cyclobenzap rine 5 mg tablet TAKE 1 TABLET BY MOUTH UP TO THREE TIMES DAILY NEEDED FOR MUSCLE SPASM 02/26 completed Not Available Not Available Not Available aripiprazol e 5 mg tablet TAKE 1 TABLET BY MOUTH EVERY DAY 09/01 completed Not Available Not Available Not Available Vitamin C active Not Available Not Maryan ilable Not Available Pepcid 1 daily active Not Available Not Avail able Not Available BD Insulin Syringe Ultra-Fine (half unit) 0.3 mL 31 gauge x 5/16 USE TO INJECT UNDER THE SKIN TWICE WEEKLY DIRECTED active Not Available Not Available No t Available Vyvanse 30 mg capsule TAKE 1 CAPSULE BY MOUTH EVERY DAY IN THE MORNING 09/01 completed Not Available Not Available Not Available Vyvanse 50 mg capsule TAKE 1 CAPSULE BY MOUTH EVERY DAY IN THE MORNING active Not Available Not Available No t Available lisdexamfet amine 60 mg capsule TAKE 1 CAPSULE BY MOUTH EVERY DAY IN THE MORNING 09/01 completed Not Available Not Available Not Available Vyvanse 20 mg capsule TAKE 1 CAPSULE BY MOUTH EVERY DAY IN THE MORNING active Not Available Not Available No t Available Vyvanse 40 mg capsule TAKE 1 CAPSULE BY MOUTH EVERY DAY IN THE MORNING 09/01 completed Not Available Not Available Not Available venlafaxine ER 225 mg tablet,exte nded release 24 hr TAKE 1 TABLET BY MOUTH DAILY IN THE MORNING WITH FOOD AT THE SAME TIME EACH DAY 10/22 completed Not Available Not Available Not Available Zyrtec 10 mg capsule Take by oral route. active Not Available Not Available No t Available Probiotic 05/29 completed Not Available Not Available Not Available Xarelto 10 mg tablet TAKE 1 TABLET BY MOUTH EVERY DAY active Not Available Not Available No t Available Vitamin D2 active Not Available Not Av ailable Not Available BD Insulin Syringe Ultra-Fine 0.3 mL 31 gauge x 5/16 USE TO INJECT UNDER THE SKIN TWICE WEEKLY DIRECTED 05/29 completed Not Available Not Available Not Available Vraylar 1.5 mg capsule TAKE 1 CAPSULE BY MOUTH EVERY DAY active Not Available Not Available No t Available Austedo 6 mg tablet Take 1 tablet twice a day by oral route. 05/29 completed Not Available Not Available Not Available Ingrezza 40 mg capsule 12/11 completed Not Available Not Available Not Available Ingrezza 80 mg capsule 12/11 completed Not Available Not Available Not Available Ingrezza 60 mg capsule 09/01 completed Not Available Not Available Not Available quercetin 1000 mg 2x daily active Not Available Not Available No t Available naltrexone 4.5 mg capsule Take 1 capsule every day by oral route. active Not Available Not Available No t Available Austedo XR 36 mg tablet,exte nded release TAKE 1 TABLET BY MOUTH EVERY DAY active Not Available Not Available No t Available Vitals Date Recorded Body height Body mass index (BMI) Body weight Body temperature Heart rate Oxygen saturation Oxygen saturation in Arterial blood by Pulse oximetry Systolic blood pressure Diastolic blood pressure Provider Name and Address Organization Details Last Updated DateTime 4 162.56 cm 34.3 kg/m2 55399.7 6 g 97.7 [degF] 88 /min 98 % 98 % 114 mm[Hg] 60 mm[Hg] Babs Dial [facility] 4 11:49:12 Date Recorded Body height Body mass index (BMI) Body weight Body temperature Heart rate Oxygen saturation Oxygen saturation in Arterial blood by Pulse oximetry Systolic blood pressure Diastolic blood pressure Provider Name and Address Organization Details Last Updated DateTime 4 162.56 cm 34.3 kg/m2 83623.0 4 g 97.7 [degF] 107 /min 97 % 97 % 112 mm[Hg] 78 mm[Hg] Babs Yojana [facility] 4 11:13:19 Date Recorded Body height Body temperature Oxygen saturation Oxygen saturation in Arterial blood by Pulse oximetry Heart rate Body mass index (BMI) Body weight Systolic blood pressure Diastolic blood pressure Provider Name and Address Organization Details Last Updated DateTime 5 162.56 cm 96.8 [degF] 95 % 95 % 76 /min 35.3 kg/m2 75794.5 9 g 134 mm[Hg] 76 mm[Hg] [facility] 5 13:07:17 Date Recorded Body height Body mass index (BMI) Body weight Body temperature Oxygen saturation Oxygen saturation in Arterial blood by Pulse oximetry Heart rate Systolic blood pressure Diastolic blood pressure Provider Name and Address Organization Details Last Updated DateTime 5 162.56 cm 35 kg/m2 01255.8 4 g 96.2 [degF] 98 % 98 % 79 /min 124 mm[Hg] 66 mm[Hg] [facility] 5 10:13:41 Date Recorded Body height Body mass index (BMI) Body weight Body temperature Oxygen saturation Oxygen saturation in Arterial blood by Pulse oximetry Heart rate Systolic blood pressure Diastolic blood pressure Provider Name and Address Organization Details Last Updated DateTime 5 162.56 cm 34.1 kg/m2 54650.4 4 g 97.3 [degF] 98 % 98 % 83 /min 118 mm[Hg] 62 mm[Hg] [facility] 5 10:24:30 Social History Question Answer Notes LastModified by Organizat ion Details LastModified Time Tobacco Smoking Status [facility]23 09:27:28 Do You Have An Advance Directive? No [email or web address] Information not available 09/01/2023 What Is Your Level Of Alcohol Consumption? None [email or web address] Information not available 09/01/2023 What Is Your Level Of Caffeine Consumption? Moderate [email or web address] Information not available 09/01/2023 Are You Currently Employed? Yes [email or web address] Information not available 09/01/2023 Which Illicit Or Recreational Drugs Have You Used? 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 Less Than 1 Time Per Week [email or web address] Information not available 09/01/2023 Do You Have A Medical Power Of Survey Worker? No [email or web address] Information not available 09/01/2023 What Was The Date Of Your Most Recent Tobacco Screening? 09/02/2023 [email or web address] Information not available 09/01/2023 What Is Your Relationship Status? Domestic Partner [email or web address] Information not available 09/01/2023 Do You Use Any Illicit Or Recreational Drugs? Yes [email or web address] Information not available 09/01/2023 Sex: Unknown Functional Status Question Answer Note LastModified by Organization D etails LastModified Time What is your exercise level? None [email or web address] Information not available 09/01/2023 Mental Status None recorded. Family History Relationship Description Onset Age of this Age Resolved Age Notes LastModified by Organization Details LastModified Time Brother Attention deficit hyperactivit y disorder [email or web address] Not available 08/31 00:19:52 Paternal Grandmother Arthritis [email or web address] Not available 08/18 00:19:52 Father Blood coagulation disorder [email or web address] Not available 2023 00:19:52 Father Hypercholest erolemia [email or web address] Not available 2023 00:19:52 Maternal Grandmother Family history of malignant neoplasm [email or web address] Not available 2023 00:19:52 Paternal Grandfather Heart disease [email or web address] Not available 2023 00:19:52 Mother Hypertensive disorder [email or web address] Not available 2023 00:19:52 Sister Seizure disorder [email or web address] Not available 2023 00:19:52 Medical History Condition Response Diabetes N Anxiety Disorder Y Bleeding Disorder Y Attention-deficit Hyperactivity Disorder Y High Blood Pressure N Arthritis N Hyperlipidemia N Cancer N Stroke N Thyroid Problems Y Asthma N Depression Y COPD N Anemia N Seizures N Heart Disease N Fibromyalgia N Osteoporosis N Kidney Disease N Gynecological HistoryNo gynecological history recorded. Obstetrics History GPAL:G 0 P 0 0 0 0 Immunizations Vaccine Type Date Status Note Provider Nam e and Address Organization Details Recorded Time COVID-19, mRNA, LNP-S, PF, 100 mcg/0.5mL dose or 50 mcg/0.25mL dose 03/11/[address] [facility] 10/30/2023 13:35:42 DTP 09/23/[address] [facility] 10/30/2023 13:35:42 OPV 09/23/[address] [facility] 10/30/2023 13:35:42 Hep B, adolescent/hig h risk 05/02/[address] [facility] 10/30/2023 13:35:42 Hep B, adolescent/hig h risk 11/10/[address] [facility] 10/30/2023 13:35:42 Hep B, adolescent/hig h risk 01/03/[address] [facility] 10/30/2023 13:35:42 Past Encounters Encounter ID Performer Location Encounter Start Date Encounter Closed Date Diagnosis/Indication Diagnosis SNOMED-CT Code Diagnosis ICD10 Code Diagnosis Note [id number] [facility] [address] [place] [address] 09/02/2023 16:15:02 09/02/2023 18:12:57 Chronic migraine without aura 2029453124 [address]-COVID-19 syndrome 9260465808 U09.9 Daytime somnolence 27156 69143 00 R40.0 Depressive disorder 3548 9007 F32.A Hypothyroidism 47183609 E03.9 Obstructiv e sleep apnea syndrome 97413796 G47.33 [id number] Klaudia Dyer MD [facility] [place] [address] 10/23/2023 13:26:22 10/23/2023 16:26:37 Pain of right shoulder joint 6917583820 2355986 M25.511 Herpes labialis 4378075 B00.1 [id number] Klaudia Dyer MD [facility] [place] [address] 10/30/2023 13:28:11 10/30/2023 16:17:03 Pain of right shoulder joint 7141466076 7230839 M25.511 [id number] LIANNE RESTREPO MD [facility] [place] [address] 12/12/2023 11:31:05 12/12/2023 15:27:59 Pain of right shoulder joint 8252099504 6173045 M25.511 Patient continues to have R shoulder pain following 12 sessions of PT. Exam revealing decreased ROM on R side and positive provocativ e tests for rotator cuff impingemen t. Given prior hx of recent tear, will order MRI and refer to orthopedic s. Recommende d continued tylenol in interim. [id number] LIANNE RESTREPO MD [facility]) [place] [address] 12/13/2023 11:00:45 12/13/2023 13:48:29 Spasm 51882695 M62.838 Patient endorsing muscle spasms/num bness tingling of feet/calve s for roughly 6-12 months. Nothing has seemed to improve it. Does have TD, which could explain possibly curling of toes- but does not explain numbness/t ingling/pa in. Will check CMP, magnesium, and B12 to rule out causes of cramps. Will trial cyclobenza ren- discussed not to take with clonazepam . Also discussed stretches to do to help with cramping. Numbness a nd tingling sensation of skin 5546094203 02 R20.0 R20.2 Resting tremor 37760891 G25.2 Patient has a resting tremor which has been present for several years- worsened on ingrezza- now back at baseline on Austedo for TD. On exam- tremor noted at rest- FNF is normal as is writing/dr jimenez. Is already on propranolo l however I do not believe this is an essential tremor. No cogwheel rigidity or shuffling gait- however patient is endorsing balance instabilit y, drooling, occasional difficulty swallowing . Given all this- will refer to Neurology (who she is already establishe d with for cognitive/ headaches) for full evaluation of this tremor since I do not see a history of evaluation for this. 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 Menopausal symptom 49561 002 N95.1 Resting tremor 25963060 G25.2 Tardive dyskinesia 73854 9007 G24.01 [id number] [facility] [place] [address] 03/06/2024 09:57:01 03/06/2024 11:53:56 Abscess 894169110 L02.91 [id number] MD [facility] [place] [address] 05/29/2024 10:01:50 05/29/2024 11:05:32 Hypothyroidism 09558314 E03.9 Morbid obesity 430103119 E66.01 Screening mammography 24 733436 Z12.31 Viral scre ening status 631225775 Z11.59 Health Concerns Section Related Observation LastModified by Organization Detai ls LastModified Time None Recorded Concern Status LastModified by Organization Details LastModified Time None Recorded Advance Directives Directive N: Payers Encounter Date Sequence Insurance Name Policy Number Policy Mas Covered Member ID Mas Member ID Guarantor Name 12/12/2023 DL Ngo 12/13/2023 1 [facility] (MEDICARE REPLACEMENT/A DVANTAGE - PPO) [id number] Deja Ngo [id number] Deja Ngo 02/27/2024 1 [facility] (MEDICARE REPLACEMENT/A DVANTAGE - PPO) [id number] Deja Ngo [id number] Deja Ngo 03/06/2024 1 [facility] (MEDICARE REPLACEMENT/A DVANTAGE - PPO) [id number] Deja Ngo [id number] Deja Ngo 05/29/2024 1 [facility] (MEDICARE REPLACEMENT/A DVANTAGE - PPO) [id number] Deja Ngo [id number] Deja Ngo Notes Date Note Type Note Provider Name and Address Organization Details Recorded Time 4 text/html 1) f/u right shoulder; workman's comp- pt reports pain w/ movement continued since middle of PT-middle of therapy, feels that pain/improvement stagnated- pain is 3/10 with movement- nothing at rest- prior to was 5/10- feels ROM has improved with PT- PT rec'd f/u with doctor for further treatment, has been discharged- endorsing clicking/popping, pain in front/side of R shoulder- states last year she did have a rotator cuff surgery on R shoulder- possibly injured from moving incident- cannot remember if the pain is the same- tylenol not helping much, cannot take ibuprofen, heat/ice/diclofenac gel/muscle rubs did not help LIANNE RESTREPO MD [address] , [place], [address], [place] [facility] - [facility] 12/13/2023 17:52:30 4 text/html #tremors (right hand)- present over the last few years, initially mild and sporadic- worsened after starting Ingrezza, dose decreased and pt started on Austedo one week later, sx improved some- does have hx of TD diagnosed roughly a year ago- this predated this diagnoses by several years- tremor noted mostly at rest- is now back to baseline with austedo- Does have a hx of tremor in grandmother (unknown cause), and great gma (parkinson's)- patient also concerned regarding this tremor and other concerning symptoms which she is having- notes increased drooling, poor balance, slow chewing, trouble swallowing (notes once per week she has a hard time initiating swallowing- food gets stuck- she just has to keep trying to swallow until it goes down)- no troubles speaking, moving, seeing, hearing, no other FND signs- states balance is poor- roughly 4 months ago was seen by PT who helped improve balance but is still unsteady- does see neurology- was never formally evaluated for tremor- they just mentioned it was likely due to Ingrezza #BLE muscles spasms / toe-clenching- starts in arch of foot, radiating to dorsum and into knee- constant pain; some numbness and burning- onset 6-12 months ago (before started Austedo)- has not changed with austedo/ingrezza switch- no back trauma, no new back pain, no hx of diabetes, no pain in legs at night- patient does see psych for management of austedo- they will see her next week and likely increase dosage of austedo at that time per her report LIANNE RESTREPO MD [address] [place] [address], [phone], [facility] 12/16/2023 10:36:47 5 text/html Deja Beckham a 43 year oldfemalepresenting for care. Deja has long COVID. She is currently being going through a flare. She has been having weakness, blurred vision, sores in her mouth, GI upset, muscle weakness,, frequent urination, thirst, dizziness, uncoordination, anxiety and nervousness. She does see a psychiatrist and is on medication for her anxiety. She did develop tardive dyskinesia and now has some resting tremors and is on medication to treat some of these concerns. She was told that she might have mast cell activation syndrome. She sees a GI specialist in [place] on April 2024. She has been using Pepcid. She has a cyst in her pubic area that she wants me to look at. She has been applying PRid without any drainage. She thinks it is getting a little smaller. We reviewed her medications many of which are treating anxiety and depression issues. She has been taking more vitamins including vitamin C, vitamin D, Zyrtec and quericidin. Klaudia Dyer MD [address] [place] [address], [phone], [facility] 03/03/2024 18:58:44 5 text/html Patient comes in today for possible I&D of an area on the mons pubis. Dr. Dyer had placed her on Bactrim a week ago. She said initially she did have a little drainage from the area but there has been no further drainage. It still sore. She has not noticed any redness surrounding it. Initially her had tried poking it to see if they can get anything out of it and that was when the discharge was expressed. She has no chronic issues like this. Km Hernandez PA-C [address] [place], [address], [facility] 03/08/2024 17:24:17 5 text/html Deja is a 44-year-old woman who works at the [employer]. She is here because she requires disability paperwork completed for the [employer]. She has had a history of back surgery. She has chronic back pain and ongoing degenerative disc disease and when she is working she needs to be able to sit with a chair that has a back support. The [employer] recently put in stools that have no back support. She also has long COVID and fatigue. She has some urgency with urination and due to her back she moves more slowly. She needs to be able to use the closest restroom. This restroom has been designated as for customers only and there is an employee bathroom which she says is about 3 to 5 minutes away. She cannot always make it to the bathroom and she would like to be able to use 1 that is closest to her. I support her in these concerns. She was having a lot of rashes and recently went to a new doctor who diagnosed her with mast cell activation syndrome. She has been on a low-dose of naltrexone which is medicine proven to work for this. Naltrexone is also used to help with weight loss. She is obese and we talked about how this might help with appetite and cravings and might help her to lose weight. Because of her chronic back pain she is not able to exercise well and this adds to weight. She also sits at her job so she does not have a very active job. She has obstructive sleep apnea. She has not been wearing her CPAP but she has noticed no improvement from it. Klaudia Dyer MD [address] [facility], [place], [address], [facility] 05/29/2024 11:10:21 OBGyn Episode No OBEpisode recorded.
--- OUTSIDE RECORDS SUMMARY | 2024-06-03 11:40 | XMS_ITS | Patient Health Record ---
Author Organization [facility] Address [address] [place] [address] Care Team Providers Care Sieve Grader Tender Name Role Phone Varsha Turner Primary Care Provider Un available Fabricio Alpesh Unavailable [phone] Judi Flores Unavailable Unavailabl e Allergies No Known Allergies Reason For Referral No Information Medications Medication SIG (Take, Route, Frequency, Duration) Notes Start Date End Date Status Imitrex 100 MG 1 tablet as needed Orally at onset of pain, may repeat at 2 hrs, <10d per month for 30 days Active Xarelto 10 MG 1 tablet with food Orally Once a day for 30 day(s) Active Venlafaxine HCl ER 150 MG 1 tablet with food Orally Once a day Active Lunesta 3 MG 1 tablet immediately before bedtime Orally Once a day for 90 days 05/17/2020 Active Levothyroxine Sodium 50 MCG 1 tablet on an empty stomach in the morning Orally Once a day for 30 day(s) Active ARIPiprazole 10 MG 1 tablet Orally Once a day Active KlonoPIN 1 MG 1 tablet Orally Daily occasionally for anxiety Active Propranolol HCl 40mg BID Acti ve Lunesta 3 MG 1 tablet immediately before bedtime Orally Once a day Active Verapamil HCl ER 120 MG TAKE ONE TABLET BY MOUTH DAILY for 90 Active Vyvanse 60mg Active LaMICtal 200mg daily Active Social History Tobacco Use: Social History Observation Description Date Details (start date - stop date) Never Smoker NA - NA Smoking Question Answer Notes Tobacco Status Never smoked Section Notes: 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 Problems Problem Type SNOMED Code ICD Code Onset Dates Problem Status W/U Status Risk Notes Problem 091918373 Chronic migraine without aura, intractable, with status migrainosus (G43.711) Active confirmed Problem 618644278 Other insomnia (G47.09) Active confirmed Problem 87998535 Other chronic pain (G89.29) Active confirmed Problem 62501679 Other amnesia (R41.3) Active confirmed Problem 51078227 Neck pain (M54.2) Active confirmed Problem 42252564 Cervico-occipita l neuralgia (M54.81) Active confirmed Problem 21217129 Paresthesias (R20.2) Active confirmed Problem Abnormal gait (10920618) Gait instability (R26.81) Active confirmed Problem 38134560 Muscle twitching (R25.3) Active confirmed Problem 49683483 ADD (attention deficit disorder) without hyperactivity (F98.8) Active confirmed Problem 10453060 Headache, unspecified (R51.9) Active confirmed Plan Of Treatment No Information Insurance Providers Payer Name Payer Address Payer Phone Subscriber Number Group Number Insured Name Patient Relationship to Insured Coverage Start Date Coverage End Date [place] [address] [place], [place] [id number] Deja Ngo Self - patient is the insured Medical (General) History Medical History History ICD Code Migraine Anxiety/Depression - sees psychiatry & t alk therapy Hypothyroidism Sleep apnea - resolved after gastric sle ep surgery w/Dr. Monge. Blood clots in the abdomen x 2, portal vein thrombosis and mesenteric vein thrombosis around 2016, these were post-operative after a gastric sleeve procedure, occurred at the same time. Saw a international organizer, still maintains f/u 1/yr, Dr. Judi Flores. Has been on Xarelto for about a year, was on warfarin prior to that. Tried eliquis previously but she had very heavy vaginal bleeding s/p hysterectomy. Renal stone. Surgical History Surgery Date(Month/Year) Media Teeth 1997 microdiscectomy L4-5 2013 gastric sleeve 2017 hysterectomy 2018 spinal fusion L4-5 w/[place] [address]
--- OUTSIDE RECORDS SUMMARY | 2024-06-03 11:40 | XMS_ITS | Patient Health Record ---
Author Organization [facility] do Billing Info Address [address] [place] [id number] Care Team Providers Care Flash Developer Name Role Phone ANUSHA FERGUSON NP Primary Care Provider Unavailable Reason For Referral No Information Medications Medication SIG (Take, Route, Frequency, Duration) Notes Start Date End Date Status Verapamil HCl Active Multivitamin Adult - Orally BID Active Warfarin Sodium 2 MG 1 tablet Orally As directed 4 days/week managed by Dr. Fugn Not-Taking Trokendi XR Active Warfarin Sodium 2.5 MG 1 tablet Orally As directed 3 days a week Not-Taking Clonazepam Active Lorazepam 1 MG 1 tablet at bedtime as needed Orally PRN Not-Taking Clonazepam Active Dextroamphetamine Sulfate ER Active Propranolol HCl 20 MG 1 tablet Orally Twice a day for 30 day(s) Active Xarelto Active Levothyroxine Sodium 50 MCG 1 tablet on an empty stomach in the morning Orally Once a day for 30 day(s) Active Sumatriptan Active Calcium 500 MG 1 tablet with meals Orally Twice a day Active Venlafaxine HCl 75 MG 3 tablet with food Orally Once a day total of 225mg/day Active Aripiprazole 2 MG 1 tablet Orally Once a day Active IUD's Not-Taking Lamotrigine Active Fiber - as directed Orally BID Not-Taking Docusate Sodium 100 MG 1 capsule as needed Orally BID Not-Taking Immunizations Vaccine Route Administration Date Status Comme nts FLU (Past vaccine of unknown type) Unknown 12/25/2016 R efused Social History Tobacco Use: Social History Observation Description Date Details (start date - stop date) Never Smoker NA - NA Tobacco Status: Question Answer Notes Patient is a never smoker Section Notes: She works for a [employer]. She works for a [employer]. She works for a [employer]. She works for a [employer]. She works for a [employer]. She works for a [employer]. She works for a [employer]. Problems Problem Type SNOMED Code ICD Code Onset Dates Problem Status W/U Status Risk Notes Problem 99889231 Obstructive sleep apnea (adult) (pediatric) (G47.33) Active confirmed Problem 24983746 Portal vein thrombosis (I81) Active confirmed Problem 26496772 Chronic cough (R05) Active confirmed Problem 803242899 Obesity (BMI 30-39.9) (E66.9) Active confirmed Problem 58141319 Urinary, incontinence, stress female (N39.3) Active confirmed Problem 085984837 Low vitamin D level (E55.9) Active confirmed Problem 32023895 Anxiety (F41.9) Active confirmed Problem 96043812 Hypothyroidism, unspecified type (E03.9) Active confirmed Problem 57515218 Depression, unspecified depression type (F32.9) Active confirmed Problem Irritable bowel syndrome (66005287) Irritable bowel syndrome, unspecified type (K58.9) Active confirmed Problem 606579727 History of sleeve gastrectomy (Z90.3) Active confirmed Problem 348370771 Lab test positive for detection of COVID-19 virus (U07.1) Active confirmed Plan Of Treatment Pending Test Test Name Order Date BLOOD COUNT; COMPLETE CBC, A UTOMATED (HGB, HCT, RBC, WBC, & PLATELET) (40021) 12/25/2016 BLOOD COUNT; COMPLETE CBC, A UTOMATED (HGB, HCT, RBC, WBC, & PLATELET) (16787) 06/27/2017 BLOOD COUNT; COMPLETE CBC, A UTOMATED (HGB, HCT, RBC, WBC, & PLATELET) (85660) 07/04/2016 CALCIFEDIOL (25-OH VITAMIN D-3) (02425) 06/27/2017 CALCIFEDIOL (25-OH VITAMIN D-3) (10763) 12/25/2016 CALCIFEROL (VITAMIN D) (29283) 7 COMPREHENSIVE METABOLIC PANEL (50216) VITAMIN B12 (CYANOCOBALAMIN) (79400) 08/2016 VITAMIN B12 (CYANOCOBALAMIN) (19277) 01/2017 VITAMIN B12 (CYANOCOBALAMIN) (85815) 11/2017 FERRITIN (46904) 06/27/2017 FERRITIN (75028) 03/01/2016 FERRITIN (68302) 12/25/2016 PREALBUMIN (12862) 12/25/2016 PREALBUMIN (00649) 03/01/2016 PREALBUMIN (46771) 06/27/2017 THIAMINE (VITAMIN B-1) (37548) 8 THIAMINE (VITAMIN B-1) (70755) 7 THIAMINE (VITAMIN B-1) (07688) 7 THYROID STIMULATING HORMONE (TSH) (14740 ) 12/25/2016 THYROID STIMULATING HORMONE (TSH) (14977 ) 06/27/2017 HEMOGLOBIN A1C ; GLYCATED (97003) 2016 LIPID PANEL (39066) 03/01/2016 LIPID PANEL (75557) 12/25/2016 LIPID PANEL (50008) 06/27/2017 CBC W/ AUTO DIFF (72148) 03/01/2016 CBC W/ AUTO DIFF (49032) 07/09/2016 Comprehensive Metabolic Panel(Q-69700) 0 06/27/2017 HEMOGLOBIN A1c (QUEST-496) 06/27/2017 FOLATE, SERUM (QUEST-466) 06/27/2017 VITAMIN B12 (QUEST-927) 06/27/2017 FERRITIN (QUEST-457) 06/27/2017 TSH (QUEST-899) 06/27/2017 VITAMIN D,25-OH,TOTAL,IA (QUEST-34696) 0 06/27/2017 VITAMIN D, 1,25 DIHYDROXY (QUEST-79376) 06/27/2017 COMPREHENSIVE METABOLIC PANEL COMPONENTS (76502) 03/01/2016 COMPREHENSIVE METABOLIC PANEL COMPONENTS (40035) 07/09/2016 COMPREHENSIVE METABOLIC PANEL COMPONENTS (31648) 07/04/2016 CBC (INCLUDES DIFF/PLT) (QUEST-6399) 11/2017 LIPID PANEL, STANDARD (QUEST-7600) 06/27 TSH, Reflex to Free T4 (GENERIC) 018 Insurance Providers Payer Name Payer Address Payer Phone Subscriber Number Group Number Insured Name Patient Relationship to Insured Coverage Start Date Coverage End Date [employer] [address] SANDI CORTES [id number] [phone] [id number] Deja Ngo Self - patient is the insured 0 0 [employer] [address] [place], [place] [id number] Shine Veronica Spouse - patient is the spouse of the insured 2 9 Medical (General) History Medical History History ICD Code Depression, unspecified depression type F32.9 Anxiety F41.9 Hypothyroidism, unspecified type E03.9 Irritable bowel syndrome, unspecified ty pe K58.9 Urinary, incontinence, stress female Obstructive sleep apnea (adult) (pediatr ic) bipolar chronic fatigue sndrome migraines bleeding disorder Surgical History Surgery Date(Month/Year) MICRODISCECTOMY 01/2014 WISDOM TEETH 09/1997 gastric sleeve 06-26-16 uterine artery embolization 07/2016 Hysterectomy 08/2017 spinal fusion 11/2017 ankle reconstruction 03/2019 covid Hospitalization History Reason Date(Month/Year) portal vein thrombosis 07/09/16
--- OUTSIDE RECORDS SUMMARY | 2024-06-03 11:40 | XMS_ITS | Data Portability ---
Author Organization [facility] /[employer] [place] [employer]UCK [employer]IVER, , [facility] IP Address [address] [place] [address] Assessment No assessment recorded. Plan of Treatment Reminders Order Date Submit Date Provider Last Modified By Organization Details Last Modified Time Details Appointments None record ed. Lab None record ed. Referral None record ed. Procedures None record ed. Surgeries None record ed. Imaging None record ed. Medication Orders None record ed. Patient TargetsNo targets recorded. Patient Instructions Encounter Date Encounter Id Patient Instructions Last Modified By Organization Details Last Modified Time 07/24/2017 [id number] heavy menstrual periods: care instructions [id number] Not available 07/24/2017 19:23:15 Reason for Referral None Reported. Problems Name Problem SNOMED Code Status Onset Date Resolution Date Notes Provider Name and Address Organization Details Recorded Time Hypothyroidism 68753734 Active 2017 Tiffanie Chamorro, [facility] [employer], 8 11:23:32 Depressive disorder 98541980 Active [address] [facility] [employer], 8 11:23:43 Anxiety 56406301 Active [address] 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, 8 11:23:58 Menorrhagia 209535038 Active 2017 Gabino Matta MD [address], [address], [place], [address] [place] [address] [employer], 8 19:19:32 Problem Notes None recorded. Medical Equipment None Reported. Allergies No known drug allergies Medications Name Sig Start Date Stop Date Status Note LastModified by Organization Details LastModified Time medroxyprogesterone 10 mg tablet active Not Available Not Available Not Available venlafaxine ER 75 mg capsule,extended release 24 hr active Not Available Not Availabl e Not Available Carafate 100 mg/mL oral suspension active Not Available Not Availa ble Not Available fluconazole 150 mg tablet active Not Available Not Available Not Available venlafaxine ER 150 mg capsule,extended release 24 hr active Not Available Not Availabl e Not Available warfarin 2.5 mg tablet active Not Available Not Available Not Available tramadol 50 mg tablet active Not Available Not Available Not Available warfarin 3 mg tablet active Not Available Not Available Not Available levothyroxine 75 mcg tablet active Not Available Not Available N ot Available propranolol 10 mg tablet active Not Available Not Available Not Available levothyroxine 50 mcg tablet active Not Available Not Available N ot Available pantoprazole 40 mg tablet,delayed release active Not Available Not Available Not Available warfarin 2 mg tablet active Not Available Not Available Not Available progesterone micronized 200 mg capsule active Not Available Not Available Not Available lorazepam 1 mg tablet active Not Available Not Available Not Available warfarin 1 mg tablet active Not Available Not Available Not Available SSD 1 % topical cream active Not Available Not Available Not Available Vitamin D2 1,250 mcg (50,000 unit) capsule active Not Available Not Available Not Available propranolol 20 mg tablet active Not Available Not Available Not Available oxycodone 5 mg tablet active Not Available Not Available Not Available aripiprazole 2 mg tablet active Not Available Not Available Not Available Eliquis 5 mg tablet active Not Availab le Not Available Not Available Martha 14 mcg/24 hr (up to 3 years) 13.5 mg intrauterine device active Not Available Not Av ailable Not Available Vitals Date Recorded Body weight Body mass index (BMI) Body height Systolic blood pressure Diastolic blood pressure Provider Name and Address Organization Details Last Updated DateTime 07/24/2017 02329.41 g 26.8 kg/m2 162.56 cm 118 mm[Hg] 74 mm[Hg] [facility], 8 11:23:08 Social History None recorded. Functional Status None recorded. Mental Status None recorded. Family History Nothing Reported. Medical History No medical history recorded. 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 We discussed treatment including suppressio n with oral contracept sharyn (which she is not really aa candidate for), Mirena IUDs, and progestero ne compounds (Nexplanon , Depo Provera, micronor), NSAIDs, and surgical management with endometria l ablation or hysterecto my. We discussed endometria l ablation. We reviewed the efficacy of 50-60% amenorrhea /30-40% hypomenorr hea/10-15% no change. We reviewed the risk of hysterecto my and anticoagul ation and rebel surgical DVTs. I told her I thought that an ablation would be a great option to try, and if it failed she could always go on to have a hysterecto my. She was grateful for the informatio n. Time spent 50 minutes. Health Concerns Section Related Observation LastModified by Organization Detai ls LastModified Time None Recorded Concern Status LastModified by Organization Details LastModified Time None Recorded Advance Directives Directive None Recorded Payers Encounter Date Sequence Insurance Name Policy Number Policy Mas Covered Member ID Mas Member ID Guarantor Name 07/24/2017 1 [place] ANNE MARIE [employer] - [employer] 112 Shine Veronica [id number] Deja wilkes Notes Date Note Type Note Provider Name and Address Organization Details Recorded Time 07/24/2017 text/html new pt presents for municipal engineer consultation visit to discuss c/o intermittent light vaginal bleeding since 03/17/17. She endorses abd cramping similar to menstrual cramps. Pt recently stopped taking Depo Provera 06/2016, had 1 menstrual period 07/2016, and then had bleeding onset in February. She was evaluated at [facility] Gynecology and had a uterine artery embolization 07/2016 and was placed on progesterone with no relief of symptoms. Had Martha IUD placed 02/2017 that is still in place. Was advised to get a hysterectomy vs ablation. She is leaning towards getting a hysterectomy. Denies lightheadedness. CB Had gastric sleeve surgery last year, and developed abdominal thrombosis. Was previously on Depo Provera for contraception. Was placed on Elaquis, and start bleeding. Was diagnosed with prothrombin gene mutation. Had vaginal bleeding and underwent uterine artery embolization. Stopped bleeding, but started again in February and has continued. Had a Martha IUD placed in February. Ultrasound revealed a thin endometrium. Gabino Matta MD [address], [place], [address], [facility] [employer], 07/24/2017 19:23:48 OBGyn Episode No OBEpisode recorded.
--- OUTSIDE RECORDS SUMMARY | 2024-06-03 11:40 | XMS_ITS | Clinical Summary ---
Author Organization [facility] Address [facility] [place] [address] Care Team Providers Care Body Die Maker Name Role Phone Aline Monsivais NP Primary Care Provider [phone] Allergies No known active allergies Medications venlafaxine XR 150 MG 24 hr capsule Take 225 mg by mouth daily. Active lamoTRIgine ER 200 MG 24 hr tablet Take 1 tablet (200 mg total) by mouth 2 (two) times daily. Active levothyroxine 50 MCG tablet Take 1 tablet (50 mcg total) by mouth every morning. Active propranolol 40 MG tablet Take 0.5 tablets (20 mg total) by mouth 3 (three) times daily. Active SUMAtriptan (IMITREX) 50 MG tablet 2 tablets (100 mg total). 10/08/2021 Active clonazePAM (KLONOPIN) 1 MG tablet Take 1 tablet (1 mg total) by mouth. Active ARIPiprazole (ABILIFY) 10 MG tablet Take 1 tablet (10 mg total) by mouth daily. 08/14/2022 Active cariprazine (VRAYLAR) 1.5 MG capsule Take 1 capsule (1.5 mg total) by mouth daily. Active hydrOXYzine (ATARAX) 10 MG tablet Take 1 tablet (10 mg total) by mouth daily. Active oxyCODONE-aceta minophen (PERCOCET) 5-325 MG tabletIndicatio ns:Chronic Pain Take 1 tablet by mouth every 6 (six) hours as needed for Pain. Indications: Chronic Pain 30 tablet 09/04/2022 Active Active Problems Problem Noted Date Diagnosed Date Neck pain 03/26/2023 Aftercare following surgery 03/20/2022 Right shoulder pain 03/12/2022 S/P right rotator cuff repair 03/12/2022 Adhesive capsulitis of right shoulder 10/30/2021 Nontraumatic tear of right r otator cuff, unspecified tear extent 08/07/2021 Impingement syndrome, shoulder, right 07/24/2021 Biceps tendonitis on right 07/18/2021 Rotator cuff tendonitis, right 07/18/2021 Intractable chronic migraine without aura 2020 Insomnia 10/11/2020 Amnesia 10/11/2020 Anemia 10/11/2020 Attention deficit hyperactiv ity disorder (ADHD), predominantly inattentive type 10/11/2020 Cervico-occipital neuralgia 10/11/2020 Chronic low back pain 06/16/2019 Migraine 03/27/2019 SI (sacroiliac) joint dysfunction 09/09/2018 Mixed anxiety and depressive disorder 09/02/2018 Constipation 09/02/2018 Lumbosacral radiculitis 07/17/2018 Piriformis syndrome, left 05/27/2018 Chronic vertigo 05/14/2018 Fusion of spine of lumbar region 03/03/2018 Spinal stenosis of lumbar region at multiple lev els 12/10/2017 Overview (02/02/2021): Last Assessment & Plan: s/p L4-L5 posterior lumbar interbody fusion on 12/[address] Martin - ongoing management per primary team - pain well controlled - reviewed today and improving Other spondylosis with radiculopathy, lumbar reg ion 12/10/2017 Overview (02/02/2021): Last Assessment & Plan: Ms. Ngo continues to report neuropathic sounding left lower extremity pain status post L4-5 posterior spinal fusion. She also demonstrates physical examination evidence of sacroiliac joint dysfunction today. We discussed her various treatment options including therapy, medication, injections, and additional surgery. At this point we will continue Lyrica and increase the dose to 100 mg twice daily, she will seek physical therapy and yoga therapy, she will call me if a left sacroiliac joint injection is desired. All questions answered to patient's satisfaction lumbar MRI reviewed with patient at length. Patient will return to clinic in 1 month. Left leg weakness 12/10/2017 Herniated lumbar intervertebral disc 12/10/2017 Foot drop, left 12/10/2017 Lumbar radiculopathy 11/25/2017 Lumbar post-laminectomy syndrome 11/25/2017 Acquired hypothyroidism 10/24/2016 Overview (02/02/2021): Last Assessment & Plan: Chronically on synthroid 50mcg which has been resumed. Last documented TSH was on 12/2016 --> 2.16 - no reason to repeat TSH this stay - reviewed today, no symptoms Last Assessment & Plan: Chronically on synthroid 50mcg which has been resumed. 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 Excessive anticoagulation 08/06/2016 Anxiety 05/31/2016 Severe episode of recurrent major depressive disorder, without psychotic features ([facility]/HCC) 05/24/2016 HUY (generalized anxiety disorder) 05/24/2016 Overview (02/02/2021): Last Assessment & Plan: Continue Abilify, Ativan, Effexor Monitor for somnolence and use benzos cautiously in post op period Dysthymic disorder 02/19/2014 Immunizations Immunization Administration Dates Next Due MODERNA COVID-19 (TECHNOLOGY EDUCATION INSTRU[employer]ARIK), MRNA, LNP-S, PF, 50 MCG/ 0.25 ML DOSE 03/11/2021 Family History Medical History Relation Comments Clotting Disorder Father Breast Cancer Maternal Grandmother Hypertension Mother Relation Status Comments Father Alive Maternal Grandmother Mother Alive Social History Tobacco Use Types Packs/Day Years Used Date Smoking Tobacco: Never Smokeless Tobacco: Never Tobacco Cessation:Counseling Given: Not Answered Alcohol Use Standard Drinks/Week Comments Never 0 [...] Sex Assigned at Female 03/04/2024 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 Sex Female 9:13 AM CDT Gender Identity Not on file Sexual Orientation Not on file Last Filed Vital Signs Vital Sign Reading Time Taken Comments Blood Pressure 112/69 07/04/2022 10:19 AM CDT Pulse 71 07/04/2022 10:19 AM CDT Temperature 36.2 C (97.2 F) 07/04/2022 10:19 AM CDT Respiratory Rate 18 07/04/2022 10:19 AM CDT Oxygen Saturation 98% 07/04/2022 10:19 AM CDT Inhaled Oxygen Concentration - - Weight 98 kg (216 lb) 09/04/2022 8:37 AM CDT Height 162.6 cm (5' 4 ) 09/04/2022 8:37 AM CDT Body Mass Index 37.08 09/04/2022 8:37 AM CDT Plan of Treatment Health Maintenance Due Date Last Done Comments Annual Physical 1983 Hepatitis C 1998 Mammogram Screening 08/16/2023 08/15/2021 COVID-19 Vaccine (2023-2 5 season) 2023 03/11/2021 DTaP, Tdap and Td Vaccines ( 3 - Td or Tdap) 10/24/2026 10/24/2016, 09/23/1985, Hepatitis B Vaccines Completed 05/02/1998, 01/03/1998, 11/10/1997 HPV Vaccines Aged Out No longer eligi ble based on patient's age to complete this topic Meningococcal B Vaccine Aged Out No l onger eligible based on patient's age to complete this topic Meningococcal Vaccine Aged Out No diane sal eligible based on patient's age to complete this topic Pneumococcal Vaccine: Pediatrics (0 to 5 Years) and At-Risk Patients (6 to 49 Years) Aged Out No longer eligible b ased on patient's age to complete this topic RSV Immunizations Under 20 Months Aged Out No longer eligible b ased on patient's age to complete this topic Medical Devices Implanted Type Area Cutter Machine Device Identifier Shelf Expiration Date Model / Serial / Lot Suture Cadillac, Swivelock Tenodesis, Biocomposite 7x19.1mm - [id number] Implanted:Qty: 1 on 03/08/2022 by Jack Whitman MD at [facility] Cadillac Right: Shoulder [employer] 05/18/2025 [id number] C-7 / / [id number] Cadillac Suture Bio-Swivelock C [employer] White/Black 4.75 X 19.1mm - [id number] Implanted:Qty: 1 on 03/08/2022 by Jack Whitman MD at [facility] Cadillac Right: Shoulder [employer] [id number] 10/18/2025 [id number] CTT / / [id number] Cadillac Suture Bio-Swivelock C [employer] - [id number] Implanted:Qty: 1 on 03/08/2022 by Jack Whitman MD at [facility] Cadillac Right: Shoulder [employer] [id number] 11/17/[address] [id number] CT / / [id number] Cadillac Suture Swivelock Self Punch 24.5mm Biocomposite - [id number] Implanted:Qty: 1 on 03/08/2022 by Jack Whitman MD at [facility] Cadillac Right: Shoulder [employer] [id number] 10/18/2025 AR-2324BC M / / [id number] Cadillac Suture Swivelock Self Punch 24.5mm Biocomposite - [id number] Implanted:Qty: 1 on 03/08/2022 by Jack Whitman MD at [facility] Cadillac Right: Shoulder [employer] [id number] 10/18/2025 AR-[id number] M / / [id number] Procedures Procedure Name Priority Date/Time Associated Diagnosis Comments MG SCREENING W KIMBERLY PRATEEK DIGI Routine 08/15/2021 9:29 AM CDT Visit for screening mammogram from Last 3 Months or Most Recently Relevant to Health Maintenance Results * MG SCREENING W KIMBERLY PRATEEK DIGI (08/15/2021 9:29 AM CDT) Anatomical Region Laterality Modality Breast Bilateral Mammography 09/12/2021 11:4 5 AM CDT Impressions 09/12/2021 11:46 AM CDT IMPRESSION: No suspicious change since 05/12/2020. Recommendation: 1: Routine Screening Bilateral in 1 Year Assessment: ACR BI-RADS 1 - NEGATIVE Ordered By: SAIRA URBINA Interpreted By: Jacques Mayes MD, 09/12/2021 11:45 AM Narrative 09/12/2021 11:46 AM CDT Examination: Digital screening mammogram with CAD. Clinical history: Asymptomatic patient presents for routine screening. Comparison: 05/12/2020. Technique: Bilateral digital mammograms. The exam was interpreted with the use of a computer-aided detection (CAD) system. Additional 3-D tomosynthesis images were acquired. Tissue density: The breast tissue contains scattered fibroglandular densities. Findings: The breast tissue contains scattered fibroglandular densities. No suspicious mass, microcalcification or area of architectural distortion can be identified. From a mammographic standpoint, routine followup in one year would seem adequate. us Saira Urbina COMPARATOR OPERATOR MAMMO Final Result from Last 3 Months or Most Recently Relevant to Health Maintenance Insurance [facility] MEDIC[facility] Care Teams Body Die Maker Relationship Specialty [place] [address] [place] [address] PCP - General FAMILY PRACTICE 04/09/22
--- OUTSIDE RECORDS SUMMARY | 2024-06-03 11:41 | XMS_ITS ---
Author Name Interface, [id number] lity Address [address] 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) Medications Date Name Route Dose Frequency Instructions [...] Oral PO 1.0 CAPSULE(S) daily 50,000 weekly 018 active 2017 Aripiprazole Oral PO 2.0 TABLET(S) daily 018 active 2017 Levothyroxine Oral PO 1.0 TABLET(S) daily 018 active 2017 Multivitamins Oral Tablet PO 1.0 TABLET(S) daily 018 active 2017 Calcium Carbonate Oral PO 1.0 TABLET(S) BID 018 active 2017 Propranolol Oral PO 1.0 TABLET(S) BID active 2017 Venlafaxine Oral 24 hr Tab PO 1.0 TABLET, SR OSMOTIC PUSH 24HR daily 018 active Problems Diagnosis Status Date of Diagnosi s Deep venous thrombosis (disorder) Active 06/2016 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
== END 2024-06-03 10:28 | disposition home or self-care (01) ==
PROVIDERS: PCP Internal Medicine; Visit Provider Internal Medicine
DX: Z12.31 Encounter for screening mammogram for malignant neoplasm of breast (principal)
CPT/HCPCS: 77063; 77067